=== PATIENT | female | born 1985 | race Caucasian/White ===

== ENCOUNTER 2019-06-23 07:13 | Emergency (ER) | payer OTHER, SELFPAY ==
--- NOTE | ~2019-06-23 | CT_ITS ---
EXAMINATION: CT abdomen pelvis w con INDICATION: Abdominal pain TECHNIQUE: Computed tomographic images of the abdomen and pelvis were obtained after the administrati on of 100 cc of Omnipaque 350 intravenous contrast. The dose-length product (DLP) was 636.40 mGy-cm. Automated exposure control and iterative reconstruction technique were employed. COMPARISON: 01/21/2019 FINDINGS: Minimal dependent atelectasis is present in the lung bases. The heart size is normal. There is focal fatty infiltration of the liver adjacent to the ligamentum teres. The liver is otherwise no rmal. The spleen, pancreas, gallbladder, and right adrenal gland are normal. There is a 7 mm low-dens ity mass of the left adrenal gland, consistent with an adenoma. Hypoattenuating lesions in the kidney s, measuring up to 7 mm on the left, are too small to characterize but likely represent cysts. A retr oaortic left renal vein is noted. No pathologically enlarged abdominal or pelvic lymph nodes are iden tified. The appendix is normal. There is no free intraperitoneal gas or evidence of bowel obstruction . IMPRESSION: 1. No CT correlate for the patient's symptoms. Reviewed, dictated and finalized at location A.
[2019-06-23 07:17] VITALS: BP 147/118; PULSE 79; RESP 14; TEMP 36.8; O2SAT 100
--- NOTE | 2019-06-23 07:32 | ED.ABDPAIN ---
HPI - Abdominal Pain General Chief Complaint: Urogenital-Female Stated Complaint: abd pain Source: RN notes reviewed History of Present Illness HPI narrative: Patient presents emergency department from home via EMS for abdominal pain. Patient states symptoms been ongoing for the past 5 days. Patient states pain in the bilateral lower abdomen radiating to the bilateral back. Described as sharp and stabbing. Patient states associated nausea and vomiting. Patient states she was given Zofran 4 mg by EMS. Patient states that she has a history of kidney stones and feels like her previous kidney stones. She denies any fevers or chills chest pain diarrhea or any other symptoms. Related Data Home Medications Medication Instructions Recorded Confirmed alprazolam [Xanax] 2 mg PO QID PRN 01/21/19 01/21/19 lamotrigine [Lamictal] 150 mg PO DAILY 01/21/19 01/21/19 Allergies Allergy/AdvReac Type Severity Reaction Status Date / Time No Known Allergies Allergy Unverified 10/27/14 18:16 Review of Systems Review of Systems: Narrative: Gen.: Denies fevers or chills ENT: Denies congestion Respiratory: Denies shortness of breath or cough CV: Denies chest pain or palpitations GI: See HPI denies burning, urgency, frequency or hematuria Musculoskeletal: Denies back pain or muscle pain Neuro: Denies numbness, tingling, weakness or focal weakness Skin: Denies rash Except as documented, all other systems reviewed and negative [facility] Past Medical History Medical History Anxiety Kidney stones Tobacco dependence Social History Social History Smoking packs per day: 2 Smoking cigarettes per day: 40.0 Years smoked: 10 Smoking pack-years: 20.00 Smoking status: Current every day smoker Tobacco type: cigarettes Second hand tobacco smoke exposure: No Alcohol intake: never Substance use: never Gender identity (if verbalized by the patient): Female Spiritual care concerns: No Agree to blood products: Yes Exam Narrative: Exam Narrative: APPEARANCE: No acute distress, nontoxic, resting in bed HEENT: Normocephalic, atraumatic, OMM RESPIRATORY: No respiratory distress, clear to auscultation bilaterally with no rhonchi wheezing or rales CARDIOVASCULAR: RRR s murmur ABDOMINAL: Soft, nondistended, diffusely tender to palpation, no rebound or guarding, bilateral flank tenderness MUSCULOSKELETAl: Moves all extremities. No clubbing, cyanosis or edema. NEURO: Awake and alert. Following commands, speech normal, no focal deficits SKIN:: Warm, dry. Normal Color PSYCHIATRIC: Normal affect/mood Course Course Emergency Course: Reviewed old records Patient states that they are feeling much better at this time. States abdominal pain has improved. Repeat abdominal exam shows the patient's abdomen to be soft with no surgical abdomen present. Discussed with patient results of workup and diagnosis. Discussed need for follow-up with primary care physician, reasons to return to the emergency department in proper use of medication. Patient understands and agrees to current treatment plan Vital Signs Vital signs: Vital Signs Temperature 98.2 F 06/23/19 07:17 Pulse Rate 79 06/23/19 07:17 Respiratory Rate 14 06/23/19 07:17 Blood Pressure 147/118 H 06/23/19 07:17 Pulse Oximetry 100 06/23/19 07:17 Temperature 98.2 F 06/23/19 07:17 Pulse Rate 79 06/23/19 07:17 Respiratory Rate 14 06/23/19 07:17 Blood Pressure 147/118 H 06/23/19 07:17 Pulse Oximetry 100 06/23/19 07:17 MDM - Abdominal Pain MDM Narrative Medical decision making narrative: Patient's abdomen is soft without significant pain or signs of surgical abdomen on serial exams. Lab and x-ray evaluations are reviewed and patient is felt to be a reasonable candidate for outpatient management. Patient was instructed as to limitations of x-ray
[2019-06-23] MEDS: MORPHINE SULFATE 4 MG/ML INJ IV PUSH (07:44)
[2019-06-23] MEDS: SODIUM CHLORIDE 0.9% IV 1,000 ML 999 ML IV CONT ×2 (07:44→10:12)
[2019-06-23 08:02] LABS: Basophils Percent Auto 0.4 % (0.2-1.2); Eosinophils Absolute Auto 0.1 K/mm3 (0-0.3); Eosinophils Percent Auto 0.9 % (0-4.4); Hematocrit 40.1 % (37.0-47.0); Hemoglobin 13.3 g/dL (12.0-15.0); Immature Granulocyte Absolute 0.03 K/mm3 (0.00-0.031); Immature Granulocyte Percent A 0.3 % (0-0.5); Lymphocytes Absolute Auto 3.11 K/mm3 (0.9-3.2); Mean Corpuscular HGB Conc 33.2 g/dl (32-36); Mean Corpuscular Hemoglobin 27.7 pg (26-34); Mean Corpuscular Volume 83.5 fl (80-100); Mean Platelet Volume 10.5 fl (7.4-10.4); Monocytes Absolute Auto 0.9 K/mm3 (0.1-0.6); Monocytes Percent Auto 8.8 % (2.6-8.5); Neutrophils Absolute Auto 5.6 K/mm3 (1.3-6.7); Neutrophils Percent Auto 57.6 % (45.5-73.1); Platelet Count Result 282 k/mm3 (150-375); Red Cell Distribution Width 13.3 % (11.5-14.5); White Blood Count 9.7 K/mm3 (4.5-10.0)
[2019-06-23 08:14] LABS: Alanine Aminotransferase 14 U/L (4-35); Alkaline Phosphatase 56 U/L (38-126); Aspartate Amino Transferase 22 U/L (14-36); Bilirubin,Total 0.6 mg/dL (0.2-1.3); Blood Urea Nitrogen 13 mg/dL (7-17); Calcium 9.1 mg/dL (8.4-10.2); Carbon Dioxide 23 mmol/L (22-30); Chloride 108 mmol/L (98-107); Estimated CRCL calculation 72 ml/min; Estimated Glomerular Filt Rate > 60; Glucose 92 mg/dL (65-105); Lipase 143 U/L (23-300); Potassium 3.1 mmol/L (3.4-5.0); Sodium 139 mmol/L (137-145)
[2019-06-23 09:06] LABS: Add Urine Microscopic? YES; Appearance Urine Clear (Clear); Bacteria Urine Trace /hpf; Bilirubin Urine Negative (Negative); Blood Urine 3+ (Negative); Color Urine Yellow (Yellow); Glucose Urine UA Negative (Negative); Ketones Urine Negative (Negative); Leukocyte Esterase Ur 1+ LEU/UL (Negative); Mucus Urine Rare /lpf; Nitrate Urine Negative (Negative); Protein Urine 2+ mg/dL (Negative); RBC Urine 0-2 /hpf (0-2); Specific Grav Ur 1.016 (1.001-1.035); Squamous Epithelial Cell Urine Many /hpf (Few)
[2019-06-23] MEDS: HYDROMORPHONE HCL 1 MG/ML INJ 0.5 MG IV PUSH (09:52)
[2019-06-23] MEDS: POTASSIUM CHLORIDE 20 MEQ TABLET 40 MEQ PO (09:52)
[2019-06-23 10:11] VITALS: BP 108/68; PULSE 54; RESP 16; O2SAT 100
[2019-06-23] MEDS: NITROFURANTOIN MONOHYD MACROCR 100 MG CAP PO (10:12)
[2019-06-23 11:03] VITALS: BP 114/60; PULSE 62; RESP 12; O2SAT 99
== END 2019-06-23 11:04 | disposition home or self-care (01) ==
PROVIDERS: Emergency Provider Emergency Medicine; PCP Family Medicine
DX: N39.0 Urinary tract infection, site not specified (principal); R10.32 Left lower quadrant pain; R10.31 Right lower quadrant pain; F41.9 Anxiety disorder, unspecified; F17.210 Nicotine dependence, cigarettes, uncomplicated; Z87.442 Personal history of urinary calculi
CPT/HCPCS: 36415; 74177; 80053; 81001; 81025; 83690; 85025; 96361; 96374; 96375; 99284; A9270; J1170; J2270; J7030; Q9967

== ENCOUNTER 2019-06-25 15:49 | Outpatient (CLI) | payer OTHER, SELFPAY ==
--- NOTE | ~2019-06-25 | US_ITS ---
EXAMINATION: US pelvic complete w TV EXAM DATE: 06/25/2019 16:24 INDICATION: Dysmenorrhea. TECHNIQUE: Pelvic transabdominal and transvaginal sonogram was performed. There are multiple graysca le and Doppler images available for interpretation. Correlation is made to CT abdomen pelvis 0. FINDINGS: Uterus measures 7.3 x 3.2 x 3.8 cm, and is morphologically normal. Endometrial stripe alicia sures 7 mm, within normal limits. There is no free pelvic fluid. Right adnexa: The ovary measures 2.5 x 1.7 x 1.5 cm and is morphologically normal. Ovarian vascular f low confirmed. Left adnexa: The ovary measures 1.6 x 1.6 x 1.2 cm and is morphologically normal. Ovarian vascular fl ow confirmed. IMPRESSION: 1. Unremarkable pelvic ultrasound exam. Reviewed, dictated and finalized at location A.
== END 2019-06-25 15:50 | disposition home or self-care (01) ==
PROVIDERS: Visit Provider Family Medicine
DX: N94.6 Dysmenorrhea, unspecified (principal)
CPT/HCPCS: 76830; 76856

== ENCOUNTER 2019-09-02 17:08 | Outpatient (CLI) | payer OTHER, SELFPAY ==
--- NOTE | ~2019-09-02 | US_ITS ---
US soft tissue upper back 09/02/2019 17:43 Indication: Left shoulder mass. Localized swelling. Procedure: High-resolution ultrasound of the left shoulder/neck in the area of palpable concern Comparison: No prior studies for comparison. Findings: There is an oval-shaped striated hypoechoic structure with circumscribed margins in the are a of palpable concern. This has a appearance consistent with muscle, although does not elongate in a typical fashion the muscle. This could represent a torn muscle. This could also represent an atypical lipoma, although slightly less echoic than typical for lipoma. Impression: 1: Oval circumscribed hypoechoic striated mass measuring 2.9 x 2.5 x 1.1 cm, possibly torn muscle or atypical lipoma. Consider correlation with contrast-enhanced CT. Reviewed, dictated and finalized at location A. Impression: 1: Oval circumscribed hypoechoic striated mass measuring 2.9 x 2.5 x 1.1 cm, po ssibly torn muscle or atypical lipoma. Consider correlation with contrast-enhan attila CT.
== END 2019-09-02 17:09 | disposition home or self-care (01) ==
PROVIDERS: Visit Provider Family Medicine
DX: M79.89 Other specified soft tissue disorders (principal)
CPT/HCPCS: 76604

== ENCOUNTER 2020-01-03 16:55 | Emergency (ER) | payer OTHER, SELFPAY ==
[2020-01-03] VITALS (9 sets, daily range): BP systolic 107–138; BP diastolic 73–100; PULSE 71–80; RESP 16–18; TEMP 36.4–36.5; O2SAT 97–100
--- NOTE | ~2020-01-03 | CT_ITS ---
EXAMINATION: CT abdomen pelvis w con DATE: 01/03/2020 20:16 INDICATION: Right lower quadrant abdominal pain. TECHNIQUE: Computed tomography (CT) of the abdomen and pelvis was performed with 100 mL Omnipaque 350 intravenous contrast. Automated exposure control and iterative reconstruction technique were employe d. The dose-length product was 584.89 mGy-cm. COMPARISON: CT abdomen and pelvis 06/23/19 FINDINGS: The visualized portions of the lung bases demonstrate mild atelectasis. No pleural effusion . The heart size is normal. No pericardial effusion. The liver, gallbladder, spleen, pancreas, adrena l glands, and right kidney are normal. There is a 10 mm mass in left kidney. There is a 6 mm cyst in left kidney. There are no dilated loops of bowel. The appendix is normal. There are no pathologically enlarged lymph nodes. There is no free intraperitoneal fluid. There is mild thoracolumbar spondylosi s. IMPRESSION: 1. No etiology for the patient's symptoms. 2. 10 mm left kidney mass, which may be a hemorrhagic cyst or less likely a solid neoplasm. Abdomen M RI without and with contrast is recommended. Reviewed, dictated and finalized at location A. [employer] IMPRESSION: 1. No etiology for the patient's symptoms. 2. 10 mm left kidney mass, which may be a hemorrhagic cyst or less likely a hiro id neoplasm. Abdomen MRI without and with contrast is recommended.
[2020-01-03 18:20] LABS: Basophils Absolute Auto 0.1 K/mm3 (0.0-0.1); Basophils Percent Auto 0.3 % (0.2-1.2); Eosinophils Absolute Auto 0.1 K/mm3 (0-0.3); Eosinophils Percent Auto 0.9 % (0-4.4); Hematocrit 43.3 % (37.0-47.0); Hemoglobin 14.6 g/dL (12.0-15.0); Immature Granulocyte Absolute 0.06 K/mm3 (0.00-0.031); Immature Granulocyte Percent A 0.4 % (0-0.5); Lymphocytes Percent Auto 21.5 % (18.3-44.2); Mean Corpuscular HGB Conc 33.7 g/dl (32-36); Mean Corpuscular Hemoglobin 29.9 pg (26-34); Mean Corpuscular Volume 88.5 fl (80-100); Mean Platelet Volume 10.6 fl (7.4-10.4); Monocytes Absolute Auto 0.7 K/mm3 (0.1-0.6); Monocytes Percent Auto 4.8 % (2.6-8.5); Neutrophils Absolute Auto 11.1 K/mm3 (1.3-6.7); Neutrophils Percent Auto 72.1 % (45.5-73.1); Platelet Count Result 312 k/mm3 (150-375); Red Blood Count 4.89 M/mm3 (4.2-5.4); White Blood Count 15.3 K/mm3 (4.5-10.0)
[2020-01-03 18:33] LABS: Alanine Aminotransferase 11 U/L (4-35); Albumin Level 4.4 g/dL (3.5-5.1); Alkaline Phosphatase 62 U/L (38-126); Anion Gap 8 mmol/L (8-16); Aspartate Amino Transferase 21 U/L (14-36); Bilirubin,Total 0.5 mg/dL (0.2-1.3); Blood Urea Nitrogen 11 mg/dL (7-17); Calcium 9.4 mg/dL (8.4-10.2); Carbon Dioxide 24 mmol/L (22-30); Chloride 108 mmol/L (98-107); Estimated CRCL calculation 89 ml/min; Estimated Glomerular Filt Rate > 60; Glucose 93 mg/dL (65-105); Lipase 278 U/L (23-300); Sodium 140 mmol/L (137-145)
[2020-01-03 19:01] LABS: Add Urine Microscopic? YES; Appearance Urine Clear (Clear); Bacteria Urine Trace /hpf; Bilirubin Urine Negative (Negative); Blood Urine 2+ (Negative); Color Urine Yellow (Yellow); Glucose Urine UA Negative (Negative); Ketones Urine Negative (Negative); Leukocyte Esterase Ur Negative LEU/UL (Negative); Mucus Urine Heavy /lpf; Nitrate Urine Negative (Negative); Protein Urine 2+ mg/dL (Negative); Squamous Epithelial Cell Urine Few /hpf (Few); Urobilinogen Urine Negative mg/dL (<2.0); WBC Urine 0-3 /hpf
--- NOTE | 2020-01-03 19:09 | PC.NURSE ---
report to axel Villeda at this time, he has assumed pt care.
[2020-01-03] MEDS: ONDANSETRON INJ 4 MG/2 ML VIAL IV PUSH (19:20)
[2020-01-03] MEDS: SODIUM CHLORIDE 0.9% IV 1,000 ML 999 ML IV CONT ×2 (19:21→21:26)
[2020-01-03] MEDS: FAMOTIDINE 20 MG/2 ML VIAL IV PUSH (19:21)
--- NOTE | 2020-01-03 19:24 | ED.ABDPAIN ---
HPI - Abdominal Pain General Chief Complaint: Abdominal Pain Stated Complaint: right lower quadrant pain Time Seen by Provider: 01/03/20 18:55 Source: patient Mode of arrival: ambulatory Limitations: no limitations History of Present Illness HPI narrative: Patient is a 34-year-old female who presents with sharp stabbing right lower quadrant abdominal pain for the last 2-1/2 days has been taking medications at home with no improvement denies similar occurrence in the past no she has had a few loose stools that are minimal in nature has also had some associated nausea on arrival appears uncomfortable but in no distress denies urinary vaginal issues or individuals with similar occurrence at home or URI symptoms Related Data Home Medications Medication Instructions Recorded Confirmed alprazolam [Xanax] 2 mg PO QID PRN 01/21/19 01/21/19 gabapentin 300 mg PO DAILY 01/03/20 Allergies Allergy/AdvReac Type Severity Reaction Status Date / Time No Known Allergies Allergy Verified 01/03/20 18:03 Review of Systems Review of Systems: All systems reviewed & are unremarkable except as noted in HPI and below PMFSH Past Medical History Medical History (Updated 01/03/20 @ 21:01 by Benoit Luna PA-C) Anxiety Kidney stones Tobacco dependence Surgical History Surgical History H/O lithotripsy History of renal stent Social History Social History Smoking packs per day: 2 Smoking cigarettes per day: 40.0 Years smoked: 10 Smoking pack-years: 20.00 Smoking status: Current every day smoker Tobacco type: cigarettes Second hand tobacco smoke exposure: No Alcohol intake: never Substance use: never Gender identity (if verbalized by the patient): Female Spiritual care concerns: No Agree to blood products: Yes Exam Narrative: Exam Narrative: GENERAL: Well-appearing, well-nourished, and in no acute distress. HEAD: Normocephalic, atraumatic. EYES: PERRLA and EOMI. ENT: Nares clear, no rhinorrhea or epistaxis. Mucous membranes moist. CHEST: Clear to auscultation. No respiratory distress. No wheezes rales or rhonchi HEART: Regular rate and rhythm. No murmur heard. Normal peripheral pulses. ABDOMEN: Soft, focal right lower quadrant abdominal pain with voluntary guarding, nondistended EXTREMITIES: Normal range of motion. No edema. SKIN: Warm, dry, no rash. NEURO: No focal deficits. Alert and oriented x3. PSYCH: Normal mood and affect. Course Course Emergency Course: Patient in the room has been hydrated is feeling better patient know she was supposed to be tested for Covid today but came here instead will be tested prior to discharge patient notes that she should self quarantine and follow with primary care for further evaluation of her symptoms and the left kidney mass that was seen today patient will also be given urology follow-up. Unsure as to the etiology of patient's symptoms today Vital Signs Vital signs: Vital Signs Temperature 97.7 F 01/03/20 17:58 Pulse Rate 78 01/03/20 17:58 Respiratory Rate 18 01/03/20 17:58 Blood Pressure 138/100 H 01/03/20 17:58 Pulse Oximetry 99 01/03/20 17:58 Temperature 97.7 F 01/03/20 19:51 Pulse Rate 71 01/03/20 20:45 Respiratory Rate 16 01/03/20 20:45 Blood Pressure 111/73 01/03/20 20:45 Pulse Oximetry 99 01/03/20 20:45 MDM - Abdominal Pain MDM Narrative Medical decision making narrative: Patient in the room aware of case findings treatment plan diagnosis afebrile nontoxic-appearing no distress will be discharged home with follow-up with primary care advised to self quarantine and to do so she receives her results will follow with primary care to discuss referrals and further evaluation of her kidney mass seen today and is felt appropriate for outpatient reevaluation Lab Data Result diagrams: 01/03/20 18:09
[2020-01-04 13:35] LABS: SARS-CoV-2 RNA PCR Negative
== END 2020-01-03 22:40 | disposition home or self-care (01) ==
PROVIDERS: Emergency Medicine Emergency Medical Services; Emergency Provider Emergency Medicine; PCP Family Medicine
DX: N28.89 Other specified disorders of kidney and ureter (principal); F41.9 Anxiety disorder, unspecified; Z87.442 Personal history of urinary calculi; F17.210 Nicotine dependence, cigarettes, uncomplicated; Z20.828 Contact with and (suspected) exposure to other viral communicable diseases
CPT/HCPCS: 36415; 74177; 80053; 81001; 81025; 83690; 85025; 87635; 96361; 96374; 96375; 99284; C9803; J0131; J2405; J7030; Q9967; U0003

== ENCOUNTER 2022-02-15 19:35 | Emergency (ER) | payer OTHER, SELFPAY ==
--- NOTE | ~2022-02-15 | XR_ITS ---
XR chest 2V DATE: 02/15/2022 20:03 INDICATION: Cough, wheezing. Smoker. TECHNIQUE: PA and lateral views COMPARISON: None FINDINGS: Normal heart size. No hilar or mediastinal enlargement. No pulmonary infiltrate or consolid ation, pleural effusion or pulmonary vascular congestion or pneumothorax. IMPRESSION: No active cardiopulmonary disease Reviewed, dictated and finalized at location A. [employer]
[2022-02-15 20:40] VITALS: BP 131/85; PULSE 63; RESP 14; TEMP 36.4; O2SAT 100
--- NOTE | 2022-02-15 20:55 | ED.URI ---
HPI - URI/Sore Throat General Chief Complaint: Upper Respiratory Infection Stated Complaint: Acute Bronchitis, SOB Time Seen by Provider: 02/15/22 19:54 History of Present Illness HPI Narrative: 36-year-old female history of bipolar and anxiety who is a 1 pack/days smoker presents to the emergency room with 12 days of sinus congestion postnasal drip coughing and shortness of breath. Patient states she was seen in urgent care last week and was diagnosed bronchitis, was given a Z-Noel and inhaler. Patient states she is not experiencing any resolution of her symptoms they are only getting worse. Patient is not taking any cough medicine. Related Data Home Medications Medication Instructions Recorded Confirmed alprazolam 2 mg tablet (Xanax) 2 mg PO QID PRN Anxiety 01/21/19 01/21/19 gabapentin 300 mg tablet 300 mg PO DAILY 01/03/20 Allergies Allergy/AdvReac Type Severity Reaction Status Date / Time No Known Allergies Allergy Verified 01/03/20 18:03 Review of Systems Review of Systems: CONSTITUTIONAL: Denies fever, chills, or sweats. EYES: Denies visual changes, redness, or discharge. ENT: Reports sinus congestion, PND CARDIOVASCULAR: Denies chest pain, palpitations, or edema. RESPIRATORY: Reports cough and dyspnea GASTROINTESTINAL: Denies abdominal pain, nausea, vomiting, or diarrhea. GENITOURINARY: Denies dysuria or hematuria. SKIN: Denies rash or itching. MUSCULOSKELETAL: Denies back pain, joint pain, or myalgia. NEUROLOGIC: Denies headache, numbness, dizziness, or weakness. PSYCHIATRIC: Denies anxiety or depression. [facility] Past Medical History Medical History Anxiety Kidney stones Tobacco dependence Surgical History Surgical History H/O lithotripsy History of renal stent Social History Social History Smoking packs per day: 2 Smoking cigarettes per day: 40.0 Years smoked: 10 Smoking pack-years: 20.00 Smoking status: Current every day smoker Tobacco type: cigarettes Second hand tobacco smoke exposure: No Alcohol intake: never Substance use: never Gender identity (if verbalized by the patient): Female Spiritual care concerns: No Agree to blood products: Yes Exam Narrative: GENERAL: Well-appearing, well-nourished, no physical limitations, and in no acute distress. HEAD: Normocephalic, atraumatic. EYES: Conjunctivae normal, PERRLA and EOMI. ENT: External nose normal, Nares clear, no rhinorrhea or epistaxis. Mucous membranes moist. Oropharynx without tonsillar hypertrophy exudate or other lesions. External ears normal, bilateral TMs normal bilaterally CHEST: External wheezes at bases HEART: Regular rate and rhythm. No murmur heard. Normal peripheral pulses. ABDOMEN: Soft, nontender, nondistended, normal active bowel sounds. EXTREMITIES: Normal range of motion. No edema. No clubbing or cyanosis SKIN: Warm, dry, no rash. No noted wounds NEURO: No focal deficits. Alert and oriented x3. MAEW. CN's II-XI intact bilaterally, normal gait PSYCH: Anxious and histrionic. Course Course Emergency Course: 2100: Went to evaluate the patient and she was found to be outside smoking a cigarette. Vital Signs Vital signs: Vital Signs Temperature 36.4 C 02/15/22 20:40 Pulse Rate 63 02/15/22 20:40 Respiratory Rate 14 02/15/22 20:40 Blood Pressure 131/85 02/15/22 20:40 Pulse Oximetry 100 02/15/22 20:40 Oxygen Delivery Room Air 02/15/22 20:40 Temperature 36.4 C 02/15/22 20:40 Pulse Rate 63 02/15/22 20:40 Respiratory Rate 14 02/15/22 20:40 Blood Pressure 131/85 02/15/22 20:40 Pulse Oximetry 100 02/15/22 20:40 Oxygen Delivery Room Air 02/15/22 20:40 MDM - URI/Sore Throat Lab Data Labs: Lab Results 02/15/22 Range/Units 20:28 Influenza A (RT-PCR) Pending Influenza B (RT-
[2022-02-15 21:00] VITALS: PULSE 76; RESP 16; O2SAT 97
[2022-02-15 21:15] LABS: Influenza A QL RT-PCR Negative (Negative); Influenza B QL RT-PCR Negative (Negative); RSV RNA, RT-PCR Negative (Negative); SARS-CoV-2 RNA PCR Negative
[2022-02-15] MEDS: ALBUTEROL SULFATE NEB 2.5 MG/3 ML INH INHALATION (21:25)
[2022-02-15] MEDS: IPRATROPIUM BR 0.02% INH SOLN 0.5 MG/2.5 ML VIAL INHALATION (21:25)
[2022-02-15 21:28] VITALS: PULSE 72; RESP 22
[2022-02-15 21:44] VITALS: PULSE 77; RESP 18
[2022-02-15 22:01] VITALS: BP 126/80; PULSE 67; RESP 16; TEMP 36.8; O2SAT 98
== END 2022-02-15 22:42 | disposition home or self-care (01) ==
PROVIDERS: Emergency Provider Nurse Practitioner Family
DX: J06.9 Acute upper respiratory infection, unspecified (principal); Z20.822 Contact with and (suspected) exposure to COVID-19; F31.9 Bipolar disorder, unspecified; F41.9 Anxiety disorder, unspecified; F17.210 Nicotine dependence, cigarettes, uncomplicated; Z87.442 Personal history of urinary calculi
CPT/HCPCS: 71046; 87637; 94640; 96372; 99283; J1100

== ENCOUNTER 2024-04-25 20:15 | Emergency (ER) | payer OTHER, SELFPAY ==
[2024-04-25 20:28] VITALS: BP 107/72; PULSE 104; RESP 16; TEMP 38.5; O2SAT 96
[2024-04-25 20:38] VITALS: PULSE 113
--- NOTE | 2024-04-25 20:58 | ED.SEIZURE ---
HPI - Seizure General Chief Complaint: Seizure Stated Complaint: 11 MINUTE SZ, W/O POST ICTAL S/S Time Seen by Provider: 04/25/24 20:25 History of Present Illness HPI Narrative: 38-year-old female with a past medical history including epilepsy on Keppra 1000 mg b.i.d., anxiety disorder on multiple psychiatric medications, substance abuse history on Suboxone. Patient presents to the emergency department with a chief complaint of witnessed seizure activity. Patient is not been feeling well for last few days with sore throat, cough and upper respiratory tract infection symptoms. Patient had a witnessed generalized seizure that lasted several minutes before having a postictal period and return to spontaneous mentation. She route to the emergency department via EMS, is presently awake and answering questions appropriately. She states she has not been feeling well with a sore throat. Endorses a fever. No headache, nausea, vomiting. No abdominal pain, back pain, chest pain or shortness of breath. She has seen her regular doctor who has prescribed her Keppra and been titrating her down on her benzodiazepine therapy that she has had over last 6 months. She states she previously was taking 8 mg of alprazolam 6 months ago and has been down titrated to 1 mg once daily with no recent alterations to her regimen. No falls or head injury, trauma. is present at bedside for collateral formation he witnessed a seizure at home. Last seizure was 3 months prior. Related Data Home Medications ?Medication ?Instructions ?Recorded ?Confirmed ?Last Taken ?Type alprazolam 2 mg tablet (Xanax) 2 mg PO QID PRN Anxiety 01/21/19 01/21/19 01/21/19 History gabapentin 300 mg tablet 300 mg PO DAILY 01/03/20 Unknown History Allergies Allergy/AdvReac Type Severity Reaction Status Date / Time No Known Allergies Allergy Verified 01/03/20 18:03 Review of Systems Review of Systems: As reviewed above in HPI [facility] Past Medical History Medical History (Updated 04/26/24 @ 02:22 by Anthony Eddy MD) Tobacco dependence Anxiety Kidney stones Surgical History Surgical History History of renal stent H/O lithotripsy Social History Social History Smoking packs per day: 2 Smoking cigarettes per day: 40.0 Years smoked: 10 Smoking pack-years: 20.00 Smoking status: Current every day smoker Tobacco type: cigarettes Second hand tobacco smoke exposure: No Alcohol intake: never Substance use: never Living arrangements: with family Gender identity (if verbalized by the patient): Female Spiritual care concerns: No Agree to blood products: Yes Exam Narrative: GENERAL: Postictal but answering questions appropriately, not any acute distress, no obvious injury. HEAD: [Normocephalic, atraumatic.] EYES: [PERRLA and EOMI.] ENT: Nares clear, no rhinorrhea or epistaxis. Posterior or pharyngeal erythema, no exudates on the tonsils, dry mucous membranes. NECK: Supple. CHEST: [Clear to auscultation. No respiratory distress.] HEART: Tachycardic rate, regular rate. No murmur heard. [Normal peripheral pulses.] ABDOMEN: [Soft, nondistended], [nontender], [No rigidity or guarding] EXTREMITIES: Normal range of motion. [No edema.] SKIN: Warm, dry, no rash. NEURO: [No focal deficits]. Alert and oriented [x3.] Postictal PSYCH: [Normal mood and affect.] Course Vital Signs Vital signs: Vital Signs Temperature 38.5 C H 04/25/24 20:28 Pulse Rate 104 H 04/25/24 20:28 Respiratory Rate 16 04/25/24 20:28 Blood Pressure 107/72 04/25/24 20:28 Pulse Oximetry 96 04/25/24 20:28 Oxygen Delivery Room Air 04/25/24 20:28 Temperature 38.5 C H 04/25/24 20:28 Pulse Rate 66 04/26/24 02:11 Respiratory Rate 17 04/26/24 02:11 Blood Pressure 121/72 04/26/24 02:11 Pulse Oximetry 96 04/26/24 02:11 Oxygen Delivery Room Air 04/25/24 20:38 MDM - Seizure MDM Narrative Medical decision making narrative: 38-year-old female with a past medical history including epilepsy currently on Keppra 1000 mg b.i.d., chronic anxiety and psychiatric illness on doxazosin, alprazolam, venlafaxine. She has a history of substance abuse currently taking Suboxone therapy and being down titrated on her benzodiazepine therapy and currently taking 1 mg daily. Endorses upper respiratory infection symptoms for last few days and had a witnessed seizure today. No headache, vision changes, fall. She is postictal but answering questions appropriately. She did have a witnessed seizure by family according to the at bedside. She is febrile here at temperature 38.5?, slightly tachycardic with a pulse of 104. Normal blood pressure no tachypnea normal oxygen saturation. Suspicion presently is for breakthrough seizure and likely trigger from recent illness, possible upper respiratory infection with COVID or influenza, strep throat is also likely even her examination findings. Low suspicion for other infectious pathology although pneumonia is possible. Low suspicion intracranial pathology such as meningitis or trauma, brain bleed or mass given her normal neurological assessment at this time. Will evaluate with broad laboratory evaluations, head CT, toxicological screenings, CBC, CMP, chest x-ray, COVID, flu, RSV, strep swabs. She was given a dose of 1 g Tylenol p.o. given that she is currently able to tolerate oral intake, fluid hydration provided, given IV Keppra as she did not take her evening dose. Patient's workup here shows a minor leukocytosis 11.6, normal hemoglobin, normal platelet level. Negative lactic acidosis so suspicion for true seizure activity is lower at this time as it was drawn directly after the supposed event. Coagulation panel within normal limits. VBG shows respiratory alkalosis secondary to tachypnea. Repeat VBG after fluids and treatment here in the emergency department has normalized. Normal pH. Normal bicarb. Normal pCO2. Electrolytes within normal limits, normal creatinine, normal glucose, negative lactic acid, normal LFTs. Negative troponin. TSH normal. Normal urinalysis without signs of infection. Tox panel was negative aside from benzos and cannabis. E alcohol, salicylates and Tylenol negative. Viral panel and strep test negative. Chest x-ray shows opacities consistent with pneumonia in the right perihilar and left lower lobe. Head CT without acute findings. EKG reads sinus rhythm with short ME interval, no signs of ST segment elevations, depressions or inversions or ectopy. Overall sinus rhythm. Patient was observed here for numerous hours without any recurrence of any seizure or seizure-like activity. She had stable vital signs throughout, improved with fluids and antibiotics for her pneumonia. Discussed next steps with the patient and she would like to be discharged home. I felt like this was appropriate given her resolution of symptoms, diagnostic findings and available outpatient follow-up and current medications that she takes. We discussed admission as well the patient want to go home. Center prescriptions for her pneumonia and given strict return precautions prior to safe discharge home. Medical Records Attestation: I reviewed the patient's medical records. Lab Data Attestation: I reviewed the patient's lab results. 04/25/24 21:14 04/25/24 21:14 Labs: Lab Results 04/25/24 04/25/24 04/25/24 Range/Units 21:14 22:28 23:37 WBC 11.6 H (4.5-10.0) K/mm3 RBC 4.37 (4.2-5.4) M/mm3 Hgb 12.5 (12.0-15.0) g/dL Hct 37.9 (37.0-47.0) % MCV 86.7 (80-100) fl MCH 28.6 (26-34) pg MCHC 33.0 (32-36) g/dl RDW 13.2 (11.5-14.5) % Plt Count 246 (150-375) k/mm3 MPV 10.4 (7.4-10.4) fl Immature Gran % (Auto) 0.6 H (0-0.5) % Neut % (Auto) 80.0 H (45.5-73.1) % Lymph % (Auto) 9.9 L (18.3-44.2) % [place] % (Auto) 6.6 (2.6-8.5) % Eos % (Auto) 2.6 (0-4.4) % Baso % (Auto) 0.3 (0.2-1.2) % Lymph # (Auto) 1.15 (0.9-3.2) K/mm3 [place] # (Auto) 0.8 H (0.1-0.6) K/mm3 Eos # (Auto) 0.3 (0-0.3) K/mm3 Baso # (Auto) 0.0 (0.0-0.1) K/mm3 Abs Immat Gran (auto) 0.07 H (0.00-0.031) K/mm3 Absolute Neuts (auto) 9.3 H (1.3-6.7) K/mm3 Absolute Nucleated RBC 0.000 (0.0-0.012) K/mm3 Nucleated RBC % 0.0 (0.0-0.2) % PT 14.6 (11.1-14.7) Seconds INR 1.1 APTT 30.5 (22.3-36.8) Seconds Sodium 138 (137-145) mmol/L Potassium 4.2 (3.4-5.0) mmol/L Chloride 106 (98-107) mmol/L Carbon Dioxide 24 (22-30) mmol/L Anion Gap 8 (4-12) mmol/L BUN 8 (7-17) mg/dL Creatinine 0.73 (0.7-1.0) mg/dL Estim Creat Clear Calc 103 ml/min Estimated GFR > 60 (59 - ) Glucose 92 (65-110) mg/dL Lactic Acid < 0.5 L (0.7-2.0) mmol/L Calcium 8.7 (8.4-10.2) mg/dL Total Bilirubin 0.7 (0.2-1.3) mg/dL AST 22 (14-36) U/L ALT 12 (6-35) U/L Alkaline Phosphatase 58 (38-126) U/L Total Creatine Kinase 86 (30-135) U/L Troponin I < 0.012 (0.000-0.034) ng/mL Total Protein 6.0 L (6.3-8.2) g/dL Albumin 3.6 (3.5-5.1) g/dL TSH 0.672 (0.465-4.680) uIU/mL Urine Color Yellow (Yellow) Urine Appearance Clear (Clear) Urine pH 7.5 (5.0-9.0) Ur Specific [place] 1.009 (1.001-1.035) Urine Protein Negative (Negative) mg/dL Urine Glucose (UA) Negative (Negative) mg/dL Urine Ketones Negative (Negative) mg/dL Ur Blood (Man) Trace (Negative) Urine Nitrate Negative (Negative) Urine Bilirubin Negative (Negative) Urine Urobilinogen 0.2 (<2.0) mg/dL Leukocyte Esterase Rfl Negative (Negative) MATTEO/UL Urine RBC 6-10 H (0-2) /hpf Urine WBC 0-5 (0-3) /hpf Ur Squamous Epith Cells None seen (Few) /hpf Urine Bacteria None seen /hpf Urine Casts 0-2 Salicylates < 1.0 L (2-20) mg/dL Urine Opiates Screen Negative (Negative) Urine Methadone Screen Negative (Negative) Acetaminophen < 10 L (10-30) ug/mL Ur Barbiturates Screen Negative (Negative) Ur Phencyclidine Scrn Negative (Negative) Ur Amphetamine Screen Negative (Negative) U Benzodiazepines Scrn Positive A (Negative) Urine Cocaine Screen Negative (Negative) U Cannabinoids Screen Positive A (Negative) Ethyl Alcohol < 10 (<10) mg/dL Influenza A (RT-PCR) Negative (Negative) Influenza B (RT-PCR) Negative (Negative) RSV (RT-PCR) Negative (Negative) SARS-CoV-2 RNA (RT-PCR) Negative (Negative) Group A Strep (PCR) Not detected (Negative) ABG Data ABG results: 04/25/24 04/26/24 21:39 00:51 VBG pH 7.599 H* 7.373 VBG pCO2 15.3 L* 35.7 L VBG pO2 166.4 H 68.9 H VBG HCO3 14.6 L 20.3 L O2 Delivery Device Room air Room air O2 Liters/Min Not Reportable Not Reportable FiO2 21 21 Attestation: I personally reviewed and interpreted this ABG as follows: Interpretation: Initial respiratory alkalosis, repeat VBG shows normal pH, resolution of the tachypnea. Imaging Data Attestation: I personally reviewed and interpreted this imaging study as follows: My impression: Impressions Chest X-Ray 04/25/24 22:02 IMPRESSION: Minimal opacification in the left and right perihilar and lower lobe area which may indicate early pneumonia. Edema is also possible. Follow-up advised. Head CT 04/25/24 22:04 Impression FINDINGS: BRAIN PARENCHYMA AND CSF SPACES: No midline shift, mass effect or hemorrhage. The brain parenchyma and CSF spaces are otherwise normal. VISUALIZED PARANASAL SINUSES: Well aerated. MASTOIDS: Well aerated. BONES: The bones appear intact. SOFT TISSUES: Visualized nasopharynx is normal. Superficial soft tissues are normal. IMPRESSION: No acute intracranial findings. Discharge Plan Discharge Clinical Impression: Community acquired pneumonia, Breakthrough seizure Patient Disposition: Home, Self-Care Condition: Stable Instructions: Antibiotic Form, Epilepsy (DC), Community Acquired Pneumonia (DC) Additional Instructions: We will send you home with several antibiotics to control your pneumonia. Take Tylenol and ibuprofen for any fevers or chills. We will send you home with some cough medications as well as 2 different antibiotics. Take all your other medications at the regular times in addition to these new prescriptions. Follow-up with your regular doctor. Return with any new or worsening concerns at any time. Patient Language: Kazakh Prescriptions: New azithromycin [Zithromax Z-Noel] 250 mg tablet See Rx Instructions PO .COMPLEX Qty: 6 0RF Rx Instructions: For 250 mg dose pack: take 500 mg today (day 1), then 250 mg for 4 days (days 2-5) amoxicillin-pot clavulanate 875-125 mg tablet 1 tablet PO Q12H 7 Days Qty: 14 0RF benzonatate 200 mg capsule 200 mg PO TID PRN (Reason: cough) Qty: 20 0RF No Action gabapentin 300 mg Tablet 300 mg PO DAILY famotidine [Pepcid] 20 mg tablet 20 mg PO BID Qty: 14 0RF hyoscyamine sulfate [Levsin] 0.125 mg tablet 0.125 mg PO QID Qty: 14 0RF ondansetron 4 mg tablet,disintegrating 4 mg PO Q6H PRN (Reason: nausea and vomiting) Qty: 10 0RF albuterol sulfate 1.25 mg/3 mL solution for nebulization 1.25 mg inhalation Q4H Qty: 75 0RF prednisone 20 mg tablet 60 mg PO DAILY 5 Days Qty: 15 0RF alprazolam [Xanax] 2 mg Tablet 2 mg PO QID PRN (Reason: Anxiety) Follow-up/Referrals: UNKNOWN,DOCTOR [Primary Care Provider] - Time of Disposition: 02:22
[2024-04-25 21:00] VITALS: BP 126/79; PULSE 100; RESP 16; O2SAT 93
[2024-04-25 21:21] LABS: Basophils Percent Auto 0.3 % (0.2-1.2); Eosinophils Absolute Auto 0.3 K/mm3 (0-0.3); Eosinophils Percent Auto 2.6 % (0-4.4); Hematocrit 37.9 % (37.0-47.0); Hemoglobin 12.5 g/dL (12.0-15.0); Immature Granulocyte Absolute 0.07 K/mm3 (0.00-0.031); Immature Granulocyte Percent A 0.6 % (0-0.5); Lymphocytes Absolute Auto 1.15 K/mm3 (0.9-3.2); Lymphocytes Percent Auto 9.9 % (18.3-44.2); Mean Corpuscular Hemoglobin 28.6 pg (26-34); Mean Corpuscular Volume 86.7 fl (80-100); Mean Platelet Volume 10.4 fl (7.4-10.4); Monocytes Absolute Auto 0.8 K/mm3 (0.1-0.6); Monocytes Percent Auto 6.6 % (2.6-8.5); Neutrophils Absolute Auto 9.3 K/mm3 (1.3-6.7); Platelet Count Result 246 k/mm3 (150-375); Red Blood Count 4.37 M/mm3 (4.2-5.4); Red Cell Distribution Width 13.2 % (11.5-14.5); White Blood Count 11.6 K/mm3 (4.5-10.0)
[2024-04-25 21:32] LABS: INR 1.1; Prothrombin Time 14.6 Seconds (11.1-14.7)
[2024-04-25 21:33] LABS: Partial Thromboplastin Time 30.5 Seconds (22.3-36.8)
[2024-04-25 21:37] LABS: Acetaminophen < 10 ug/mL (10-30); Ethanol < 10 mg/dL (<10); Salicylate < 1.0 mg/dL (2-20)
[2024-04-25 21:41] LABS: Fractional Inspired Oxygen 21 %; HCO3 VBG 14.6 mEq/l (24.0-30.0); PO2 VBG 166.4 mmHg (35.0-45.0)
[2024-04-25 21:43] LABS: Device ROOM AIR; PCO2 VBG 15.3 mmHg (42.0-48.0); pH VBG 7.599 (7.300-7.400)
[2024-04-25 21:44] LABS: Strep Group A RT-PCR NOT DETECTED (Negative)
[2024-04-25 21:56] LABS: Influenza A QL RT-PCR Negative (Negative); Influenza B QL RT-PCR Negative (Negative); RSV RNA, RT-PCR Negative (Negative); SARS-CoV-2 RNA PCR Negative (Negative)
[2024-04-25 22:30] VITALS: BP 123/76; PULSE 83; RESP 18; O2SAT 96
[2024-04-25] MEDS: SODIUM CHLORIDE 0.9% IV 1,000 ML 999 ML IV CONT ×2 (22:30)
[2024-04-25] MEDS: ACETAMINOPHEN 500 MG TABLET 1000 MG PO (22:30)
[2024-04-25] MEDS: levETIRAcetam 1500MG/NACL100ML 1,500 MG/100 ML BAG 400 MG IVPB (22:32)
[2024-04-25 22:45] VITALS: BP 116/67; PULSE 86; RESP 24; O2SAT 94
[2024-04-25 22:58] LABS: Lactic Acid Reflex < 0.5 mmol/L (0.7-2.0)
[2024-04-25 23:27] VITALS: BP 116/67; PULSE 87; RESP 17; O2SAT 97
--- NOTE | 2024-04-25 23:29 | PC.NURSE ---
Assumed care of patient after receiving report from MATTHEW Bronson @ 0100. Keppra stopped, EKG completed, urine collected, and antibiotics started at this time.
[2024-04-25 23:30] LABS: Alanine Aminotransferase 12 U/L (6-35); Albumin Level 3.6 g/dL (3.5-5.1); Alkaline Phosphatase 58 U/L (38-126); Anion Gap 8 mmol/L (4-12); Aspartate Amino Transferase 22 U/L (14-36); Bilirubin,Total 0.7 mg/dL (0.2-1.3); Blood Urea Nitrogen 8 mg/dL (7-17); Calcium 8.7 mg/dL (8.4-10.2); Carbon Dioxide 24 mmol/L (22-30); Chloride 106 mmol/L (98-107); Estimated CRCL calculation 103 ml/min; Estimated Glomerular Filt Rate > 60; Glucose 92 mg/dL (65-110); Potassium 4.2 mmol/L (3.4-5.0); Sodium 138 mmol/L (137-145)
[2024-04-25 23:39] LABS: Creatine Kinase 86 U/L (30-135)
[2024-04-25 23:40] LABS: Troponin I < 0.012 ng/mL (0.000-0.034)
[2024-04-25 23:49] LABS: Add Urine Microscopic? YES; Appearance Urine Clear (Clear); Bacteria Urine None Seen /hpf; Bilirubin Urine Negative (Negative); Blood Urine Trace (Negative); Color Urine Yellow (Yellow); Glucose Urine UA Negative (Negative); Ketones Urine Negative (Negative); Leukocyte Esterase Ur Negative LEU/UL (Negative); Nitrate Urine Negative (Negative); Non Pathogenic Casts 0-2; Protein Urine Negative (Negative); Specific Grav Ur 1.009 (1.001-1.035); Squamous Epithelial Cell Urine None Seen /hpf (Few); Urobilinogen Urine 0.2 mg/dL (<2.0); WBC Urine 0-5 /hpf (0-3); pH Urine 7.5 (5.0-9.0)
[2024-04-25 23:59] LABS: Amphetamine Screen Urine Negative (Negative); Barbiturate Screen Urine Negative (Negative); Benzodiazepines Screen Urine Positive (Negative); Cannabinoid Screen Urine Positive (Negative); Cocaine Screen Urine Negative (Negative); Methadone Screen Urine Negative (Negative); Opiate Screen Urine Negative (Negative); Phencyclidine Screen Urine Negative (Negative)
[2024-04-25 23:59] LABS: Thyroid Stimulating Hormone 0.672 uIU/mL (0.465-4.680)
[2024-04-26] MEDS: LACTATED RINGERS 1,000 ML 999 ML IV CONT (00:36)
[2024-04-26] MEDS: AZITHROMYCIN 500 MG/NS 250 ML 500 MG/250 ML BAG 250 MG IVPB (00:36)
[2024-04-26 00:56] LABS: Fractional Inspired Oxygen 21 %; HCO3 VBG 20.3 mEq/l (24.0-30.0); PCO2 VBG 35.7 mmHg (42.0-48.0); PO2 VBG 68.9 mmHg (35.0-45.0); pH VBG 7.373 (7.300-7.400)
[2024-04-26 00:57] LABS: Device ROOM AIR
[2024-04-26 02:11] VITALS: BP 121/72; PULSE 66; RESP 17; O2SAT 96
== END 2024-04-26 03:10 | disposition home or self-care (01) ==
PROVIDERS: Emergency Provider Student in an Organized Health Care Education/Training Program
DX: G40.909 Epilepsy, unspecified, not intractable, without status epilepticus (principal); J18.9 Pneumonia, unspecified organism; Z20.822 Contact with and (suspected) exposure to COVID-19; F41.9 Anxiety disorder, unspecified; F17.210 Nicotine dependence, cigarettes, uncomplicated; Z87.442 Personal history of urinary calculi; Z79.899 Other long term (current) drug therapy
CPT/HCPCS: 36415; 70450; 71045; 80053; 80143; 80179; 80307; 81001; 82077; 82550; 82803; 83605; 84443; 84484; 85025; 85610; 85730; 87637; 87651; 93005; 96361; 96365; 96367; 96375; 99285; A9270; J0456; J0696; J1953; J7030; J7120

== ENCOUNTER 2025-01-06 09:07 | Emergency (ER) | payer BC, SELFPAY ==
--- OUTSIDE RECORDS SUMMARY | 2024-09-26 10:20 | XMS_ITS ---
Author Organization [facility]ly [facility] Address [address] [place] [address] Care Team Providers Care Milk Hauler Name Role Phone Amparo Ibarra Primary Care Provider [phone] Lizzeth Dawson [phone] REASON FOR VISIT MAT F/U Social History Sex Assigned At : Social History Observation Description Sex Assigned At Female Encounters Encounter Location Date Provider Diagnosis [address], [place] [address] 09/26/2024 Lizzeth Dawson Plan Of Treatment No Information Progress Notes * Carlene PARIKHDOB:[birth year] (39 yo F)Acc No.[id number]:09/26/2024 UNLOCKED PROGRESS NOTE Patient: Carlene TABARES Provider: Omid Dawson, MSN, RETAIL ASSISTANT, LICENSED DIRECT ENTRY MIDWIFE-BC, LICENSED DIRECT ENTRY MIDWIFE-C :1985 A ge:38 Y S ex:Female Date:09/26/2024 Address[address] Pcp:Amparo Ibarra Subjective: * Chief Complaints: * 1 . MAT F/U. * Medical History: Objective: * Vitals: Assessment: Plan: * Treatment: * Care Plan Details* * Electronic signature of Bora Dawson APRN, [id number] on 01/06/2025 at 12:33 PM SEED PRODUCTION FIELD SUPERVISOR Sign off status: Pending * Provider: Omid Dawson, MSN, RETAIL ASSISTANT, LICENSED DIRECT ENTRY MIDWIFE-BC, LICENSED DIRECT ENTRY MIDWIFE-C Date: 0 09/26/2024 Generated for Printing/Faxing/eTransmitting on: 1 03/08/2024 12:33 PM SEED PRODUCTION FIELD SUPERVISOR
--- OUTSIDE RECORDS SUMMARY | 2024-12-31 08:00 | XMS_ITS ---
Author Organization [facility] Address [address] [place] [address] Care Team Providers Care Hospital Intern Name Role Phone Lizzeth Pabon Primary Care Provider Un available Clover Tavarez Unavailable [phone] Santos Short Unavailable [phone] REASON FOR VISIT back/hip pain Medications Medication SIG (Take, Route, Frequency, Duration) Notes Start Date End Date Status levETIRAcetam 1000 MG 1 tablet Orally tw ice a day for 90 days Active Doxepin HCl 10 MG TAKE ONE CAPSULE BY MOUTH AT BEDTIME Oral for 30 Days Active Venlafaxine HCl ER 75 MG TAKE ONE CAPSUL E BY MOUTH DAILY WITH FOOD Oral for 30 Days Active ALPRAZolam 1 MG TAKE 1 TABLET BY JESSI TH ONCE A DAY Oral for 15 Days Active Venlafaxine HCl ER 150 MG TAKE 1 CAPSULE BY MOUTH EVERY DAY WITH FOOD Oral for 30 Days Active lamoTRIgine 25 MG 1 tablet Orally 4 ti mes a day for 30 days Active Gabapentin 300 MG TAKE 1 CAPSULE BY MO UTH THREE TIMES DAILY Oral for 30 Days Active Encounters Encounter Location Date Provider Diagnosis [facility] [address] 12/31/2024 Santos Short Plan Of Treatment No Information Progress Notes * ADI CarleneDOB: 4 (39 yo F)Acc No.[id number]:12/31/2024 Progress Notes Patient: Carlene LIZARRAGA Provider: JEFRY Zarate :1985 A ge:39 Y S ex:Female Date:12/31/2024 [facility] [address] Pcp:Lizzeth Pabon Subjective: * Chief Complaints: * 1 . Back/hip pain. * Medical History: * Medications: T aking Gabapentin 300 MG Capsule TAKE 1 CAPSULE BY MOUTH THREE TIMES DAILY Oral , Taking levETIRAcetam 1000 MG Tablet 1 tablet Orally twice a day , Taking Doxepin HCl 10 MG Capsule TAKE ONE CAPSULE BY MOUTH AT BEDTIME Oral , Taking Venlafaxine HCl ER 75 MG Capsule Extended Release 24 Hour TAKE ONE CAPSULE BY MOUTH DAILY WITH FOOD Oral , Taking ALPRAZolam 1 MG Tablet TAKE 1 TABLET BY MOUTH ONCE A DAY Oral , Taking Venlafaxine HCl ER 150 MG Capsule Extended Release 24 Hour TAKE 1 CAPSULE BY MOUTH EVERY DAY WITH FOOD Oral , Taking lamoTRIgine 25 MG Tablet 1 tablet Orally 4 times a day Objective: * Vitals: Assessment: Plan: * Treatment: * * Electronic signature of JEFRY Juárez on 01/06/2025 at 09:36 AM WINDOWS SYSTEMS ADMIN Sign off status: Pending * Provider: JEFRY Zarate Date: 03/02/2024 Generated for Paula negron/Nereyda/Darrylsmitting on: 03/08/2024 09:36 AM WINDOWS SYSTEMS ADMIN
[2025-01-06 09:11] VITALS: BP 151/113; PULSE 83; RESP 18; TEMP 36.4; O2SAT 98
--- OUTSIDE RECORDS SUMMARY | 2025-01-06 09:35 | XMS_ITS | Clinical Summary ---
Author Organization [facility] Address [address] [place] [address] Phone Care Team Providers Care Supply Aide Name Role Phone JENNIFER WEAVER MD Primary Care Provider [phone] Reason for Visit and Chief Complaint * PHONE CALL Problems Includes: Problems addressed during this encounter and other active Problems All Visits Onset Date Resolved Date Provider Condition S tatus Depression Unknown JAMES VIEIRALP NUCLEAR CONTROL ROOM OPERATOR-FPA, AVIATION PROJECT MANAGER-BC Active Last Documented On 2 10:22AM ; [facility] Anxiety Disorder Nos Unknown JAMES Red SHARON NUCLEAR CONTROL ROOM OPERATOR-FPA, AVIATION PROJECT MANAGER-BC Active Last Documented On 2 10:21AM ; [facility] Thomas's Esophagus Unknown JAMES Red SHARON A PRN-FPA, AVIATION PROJECT MANAGER-BC Active Last Documented On 2 10:22AM ; [facility] Bipolar II Disorder Unknown JAMES Neda SHARON A PRN-FPA, AVIATION PROJECT MANAGER-BC Active Last Documented On 2 10:21AM ; [facility] Primary Hypothyroidism 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 JAMES Red SHARON NUCLEAR CONTROL ROOM OPERATOR-F PA, AVIATION PROJECT MANAGER-BC Active Last Documented On 2 10:26AM ; [facility] Convulsive Disorder Unknown JAMES Neda SHARON A PRN-FPA, AVIATION PROJECT MANAGER-BC Active Last Documented On 2 10:34AM ; [facility] Nicotine Dependence Unknown JAMES Neda SHARON A PRN-FPA, AVIATION PROJECT MANAGER-BC Active Last Documented On 2 10:23AM ; [facility] Post-traumatic Stress Disorder Unknown DOUG SAUCEDA LILIAN HARDIN Active Last Documented On 2 10:21AM ; [facility] Plan of Treatment No Plan of Treatment Recorded Assessments Includes: Assessments from this encounter No Assessments Recorded Medical Equipment - Implanted Devices Includes: Current Devices No Medical Equipment Recorded Medications Includes: Medications discussed during this encounter and other current Medications Current Medications (continue as prescribed) Cyclobenzaprine HCl 5 MG Oral Tablet 07/05/2022 Provider: LILIAN QUISPE Diagnosis: Myalgia, unspeci fied site One tablet three times a day as needed for muscle spasm or stiffness Last Documented On 3 2:09PM By JAMES QUINTANA ; [facility] DULoxetine HCl 30 MG Oral Capsule Delayed Release Particles 07/05/2022 Provider: LILIAN JOSEPH Diagnosis: Chronic pain syn drome One capsule at bed time Last Documented On 3 2:09PM By JAMES QUINTANA ; [facility] Meloxicam 15 MG Oral Tablet 07/05/2022 Provider: LILIAN JOSEPH Diagnosis: Other spondylosi s, lumbar region One tablet daily with a meal Last Documented On 3 2:09PM By JAMES QUINTANA ; [facility] Suboxone 8-2 MG Sublingual Film 07/05/2022 Provider: Diagnosis: Twice a day. Last Documented On 3 1:37PM By JAMES QUINTANA ; [facility] Gabapentin 600 MG Oral Tablet 07/05/2022 Provider: LILIAN JOSEPH Diagnosis: Other spondylosi s, lumbar region One tablet three times a day Last Documented On 3 2:09PM By JAMES QUINTANA ; [facility] levETIRAcetam 750 MG Oral Tablet 06/16/2022 Provider : JERRELL CLANCY RN Diagnosis: Last Documented On 3 2:09PM By JAMES QUINTANA ; [facility] OLANZapine 10 MG Oral Tablet 06/15/2022 Provider: TITO CHANEY DNP ,PMORAP-BC Diagnosis: Last Documented On 3 2:10PM By JAMES QUINTANA ; [facility] ALPRAZolam 2 MG Oral Tablet 12/30/2021 Provider: Diagnosis: As needed up to 4 tablets a day. Last Documented On 2 12:12PM By JAMES QUINTANA ; [facility] Famotidine 20 MG Oral Tablet 11/22/2021 Provider: Diagnosis: Last Documented On 2 10:53AM By JAMES QUINTANA ; [facility] Zofran 8 MG Oral Tablet 11/22/2021 Provider: Diagnosis: As needed. Last Documented On 2 10:53AM By JAMES QUINTANA ; [facility] Medications Administered Includes: Administered Medications from this encounter No Administered Medications Recorded Results Includes: Results discussed during this encounter No Results Recorded For Specified Dates History of Present Illness Includes: History of Present Illness from this encounter No History of Present Illness Recorded Social History No Social History Recorded - Smoking Status Unknown Medical History Includes: Medical History addressed during this encounter No Medical History Recorded Family History Includes: Family History addressed during this encounter No Family History Recorded Review of Systems Includes: Review of Systems from this encounter No Review of Systems Recorded Mental Status Includes: Mental Status from this encounter No Mental Status Recorded Functional Status Includes: Functional Status from this encounter No Functional Status Recorded Physical Exam Includes: Physical Exam from this encounter No Physical Exam Recorded Allergies Includes: Active Allergies Substance Type Reaction Onset Date Resolved Date Statu s Steroid Intolerance 12/30/2021 Active Last Documented On 07/05/2022 1:18PM ; [facility] Note: causes Kaci Encounters Encounter Provider Location Date Check-In Time Check-Out Time Diagnosis * PHONE CALL JAMES HERRERA NUCLEAR CONTROL ROOM OPERATOR-FPALILIAN 05/23/2023 2:59PM 11:59PM Insurance Includes: Active Insurance Policies Plan Name Member ID Group # Subscriber Relationship Effect melo Dates 1 - [facility] [id number] JERRELL WOMACK Self Clinical Notes Includes: Clinical Notes from this encounter No Clinical Notes Recorded
--- OUTSIDE RECORDS SUMMARY | 2025-01-06 09:35 | XMS_ITS | Clinical Summary ---
Author Organization [facility] Address [address] [place] [address] Phone Care Team Providers Care Paint Mixer Name Role Phone JENNIFER WEAVER MD Primary Care Provider [phone] Reason for Visit and Chief Complaint * PHONE CALL Problems Includes: Problems addressed during this encounter and other active Problems All Visits Onset Date Resolved Date Provider Condition S tatus Depression Unknown JAMES VIEIRALP PROGRAM COUNSELOR-FPA, ABNORMAL PSYCHOLOGY TEACHER-BC Active Last Documented On 2 10:22AM ; [facility] Anxiety Disorder Nos Unknown JAMES Red SHARON PROGRAM COUNSELOR-FPA, ABNORMAL PSYCHOLOGY TEACHER-BC Active Last Documented On 2 10:21AM ; [facility] Thomas's Esophagus Unknown JAMES Red SHARON A PRN-FPA, ABNORMAL PSYCHOLOGY TEACHER-BC Active Last Documented On 2 10:22AM ; [facility] Bipolar II Disorder Unknown JAMES Neda SHARON A PRN-FPA, ABNORMAL PSYCHOLOGY TEACHER-BC Active Last Documented On 2 10:21AM ; [facility] Primary Hypothyroidism 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 JAMES Red SHARON PROGRAM COUNSELOR-F PA, ABNORMAL PSYCHOLOGY TEACHER-BC Active Last Documented On 2 10:26AM ; [facility] Convulsive Disorder Unknown JAMES Neda SHARON A PRN-FPA, ABNORMAL PSYCHOLOGY TEACHER-BC Active Last Documented On 2 10:34AM ; [facility] Nicotine Dependence Unknown JAMES Neda SHARON A PRN-FPA, ABNORMAL PSYCHOLOGY TEACHER-BC Active Last Documented On 2 10:23AM ; [facility] Post-traumatic Stress Disorder Unknown DOUG SAUCEDA LILIAN HARDIN Active Last Documented On 2 10:21AM ; [facility] Plan of Treatment No Plan of [...] On 3 2:09PM By JAMES QUINTANA ; [facility] DULoxetine HCl 30 MG Oral Capsule Delayed Release Particles 07/05/2022 Provider: LILIAN JOSEPH Diagnosis: Chronic pain syn drome One capsule at bed time Last Documented On 3 2:09PM By JAMES QUINTANA ; [facility] Meloxicam 15 MG Oral Tablet 07/05/2022 Provider: LILIAN JOSEPH Diagnosis: Other spondylosi s, lumbar region One tablet daily with a meal Last Documented On 3 2:09PM By JAMES QUINTANA ; [facility] Suboxone 8-2 MG Sublingual Film 07/05/2022 Provider: Diagnosis: Twice a day. Last Documented On 3 1:37PM By JAMES QUINTANA ; [facility] Gabapentin 600 MG Oral Tablet 07/05/2022 Provider: LILIAN JOSEPH Diagnosis: Other spondylosi s, lumbar region One tablet three times a day Last Documented On 3 2:09PM By JAMES QUINTANA ; [facility] levETIRAcetam 750 MG Oral Tablet 06/16/2022 Provider : JERRELL CLANCY RN Diagnosis: Last Documented On 3 2:09PM By JAMES QUINTANA ; [facility] OLANZapine 10 MG Oral Tablet 06/15/2022 Provider: TITO CHANEY DNP ,PMORAP-BC Diagnosis: Last Documented On 3 2:10PM By JAMES CHANEY-WHITLEY ; [facility] ALPRAZolam 2 MG Oral Tablet 12/30/2021 Provider: Diagnosis: As needed up to 4 tablets a day. Last Documented On 2 12:12PM By JAMES QUINTANA ; [facility] Famotidine 20 MG Oral Tablet 11/22/2021 Provider: Diagnosis: Last Documented On 2 10:53AM By JAMES QUINTANA ; [facility] Zofran 8 MG Oral Tablet 11/22/2021 Provider: Diagnosis: As needed. Last Documented On 2 10:53AM By JAMES QUINTANA ; [facility] Medications Administered Includes: Administered Medications from this [...] Documented On 07/05/2022 1:18PM ; [facility] Note: causes Kaci Encounters Encounter Provider Location Date Check-In Time Check-Out Time Diagnosis * PHONE CALL JAMES HERRERA PROGRAM COUNSELOR-FPALILIAN 11/10/2022 8:58AM 11:59PM Insurance Includes: Active Insurance Policies Plan Name Member ID Group # Subscriber Relationship Effect melo Dates 1 - [facility] [id number] JERRELL WOMACK Self Clinical Notes Includes: Clinical Notes from this encounter No Clinical Notes Recorded
--- OUTSIDE RECORDS SUMMARY | 2025-01-06 09:35 | XMS_ITS ---
Care Plan - [facility] Created on: January 06, 2025 SHELIANORBERTJEIMYJERRELL Kalen : 1985 Sex: Female Author Organization [facility] Address [address] [place] [address] Phone Care Team Providers Care Soakers Supervisor Name Role Phone OWEN DUMONT, JENNIFER Last Primary Care Provider [phone]
--- OUTSIDE RECORDS SUMMARY | 2025-01-06 09:35 | XMS_ITS | Clinical Summary ---
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 ~95% - 0 ongoing Problems Includes: Problems addressed during this encounter and other active Problems All Visits Onset Date Resolved Date Provider Condition S tatus Depression Unknown JAMES Red SHARON EDUCATION SITE MANAGER-FPA, CLOTH HAND-BC Active Last Documented On 2 10:22AM ; [facility] Anxiety Disorder Nos Unknown JAMES Red SHARON EDUCATION SITE MANAGER-FPA, [employer]-BC Active Last Documented On 2 10:21AM ; [facility] Thomas's Esophagus Unknown JAMES Red SHARON A PRN-FPA, CLOTH HAND-BC Active Last Documented On 2 10:22AM ; [facility] Bipolar II Disorder Unknown JAMES G SHARON A PRN-FPA, CLOTH HAND-BC Active Last Documented On 2 10:21AM ; [facility] Primary Hypothyroidism 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 JAMES G SHARON EDUCATION SITE MANAGER-F PA, [employer]-BC Active Last Documented On 2 10:26AM ; [facility] Convulsive Disorder Unknown JAMES Red SHARON A PRN-FPA, CLOTH HAND-BC Active Last Documented On 2 10:34AM ; [facility] Nicotine Dependence Unknown JAMES HERRERA A PRN-FPA, CLOTH HAND-BC Active Last Documented On 2 10:23AM ; [facility] Post-traumatic Stress Disorder Unknown DOUG HERRERA EDUCATION SITE MANAGER-FPA, CL[employer]-BC Active Last Documented On 2 10:21AM ; [facility] Plan of Treatment Patient was seen today for 2 chronic unstable conditions of the lumbosacral spine, and central nervous system.Without treatment patient is at risk for significant functional limitations resulting in diminished quality of life and impaired age appropriate activities of daily living. Multiple documents have been reviewed in combination with today's evaluation including imaging studies, outside provider notes, laboratory data, patient self-report questionnaires, and [place] prescription monitoring database entries. Significant social barriers exist to compliance resulting in limited prognosis. Decision to proceed with interventional therapies was made at the time of today's visit. - Last Documented On 07/05/2022 3:07PM ; [facility] Instructions to patient Intervention and counseling on cessation of tobacco use : Patient recieved smoking cessation handout Last Documented On 3 1:16PM ; [facility] Education and Decision Aids were provided during visit for: Lifestyle education Last Documented On 3 1:16PM ; [facility] Assessments Includes: Assessments from this encounter Findings - [Z01.818 - Encounter for other preprocedural examination] Visit for: preoperative exam - Last Documented On 07/05/2022 3:07PM ; [facility] - [M47.896 - Other spondylosis, lumbar region] Lumbar spondylosis - Last Documented On 07/05/2022 3:07PM ; [facility] - [M54.50 - Low back pain, unspecified] Low back pain - Last Documented On 07/05/2022 3:07PM ; [facility] - [M54.16 - Radiculopathy, lumbar region] Lumbar radiculopathy - Last Documented On 07/05/2022 3:07PM ; [facility] - [M79.10 - Myalgia, unspecified site] Myalgia and myositis - Last Documented On 07/05/2022 3:07PM ; [facility] - [F11.20 - Opioid dependence, uncomplicated] Opioid dependence with continuous use - Last Documented On 07/05/2022 3:07PM ; [facility] - [G89.4 - Chronic pain syndrome] Chronic pain syndrome - Last Documented On 07/05/2022 3:07PM ; [facility] Instructions Includes: Instructions from this encounter Instructions to patient Intervention and counseling on cessation of tobacco use : Patient recieved smoking cessation handout Last Documented On 3 1:16PM ; [facility] Education and Decision Aids were provided during visit for: Lifestyle education Last Documented On 3 1:16PM ; [facility] Medical Equipment - Implanted Devices Includes: Current Devices No Medical Equipment Recorded Medications Includes: Medications discussed during this encounter and other current Medications Discontinued / Stopped on this date on 03/08/2022 OLANZapine 5 MG Oral Tablet Provider: Diagnosis: Last Documented On 3 2:10PM By JAMES QUINTANA ; [facility] Keppra 500 MG Oral Tablet Provider: Diagnosis: Last Documented On 3 2:10PM By JAMES QUINTANA ; [facility] New / Renewed during this visit LILIAN QUISPE on 07/05/2022 Cyclobenzaprine HCl 5 MG Oral Tablet Provider: LILIAN QUISPE 30 day supply: 90 tablet, 1 refills Diagnosis: Myalgia, unspecified site One tablet three times a day as needed for muscle spasm or stiffness Pharmacy: [facility] - [address] [place] [address], [id number] - Last Documented On 3 2:09PM By JAMES QUINTANA ; [facility] DULoxetine HCl 30 MG Oral Capsule Delayed Release Particles Provider: LILIAN JOSEPH 30 day supply: 30 capsule, 1 refills Diagnosis: Chronic pain syndrome One capsule at bed time Pharmacy: [facility] - [address] [place] [address], [id number] - Last Documented On 3 2:09PM By JAMES QUINTANA ; [facility] Meloxicam 15 MG Oral Tablet Provider: RITU JOSEPH-BC 30 day supply: 30 tablet, 1 refills Diagnosis: Other spondylosis, lumbar region One tablet daily with a meal Pharmacy: [facility] - [address] [place] [address], [id number] - Last Documented On 3 2:09PM By JAMES QUINTANA ; [facility] Gabapentin 600 MG Oral Tablet Provider: LILIAN JOSEPH 30 day supply: 90 tablet, 1 refills Diagnosis: Other spondylosis, lumbar region One tablet three times a day Pharmacy: [facility] - [address] [place] [address], [id number] - Last Documented On 3 2:09PM By JAMES QUINTANA ; [facility] Current Medications (continue as prescribed) Suboxone 8-2 MG Sublingual Film 07/05/2022 Provider: Diagnosis: Twice a day. Last Documented On 3 1:37PM By JAMES QUINTANA ; [facility] levETIRAcetam 750 MG Oral Tablet 06/16/2022 Provider : JERRELL CLANCY RN Diagnosis: Last Documented On 3 2:09PM By JAMES QUINTANA ; [facility] OLANZapine 10 MG Oral Tablet 06/15/2022 Provider: TITO CHANEY DNP ,[facility] Diagnosis: Last Documented On 3 2:10PM By JAMES QUINTANA ; [facility] ALPRAZolam 2 MG Oral Tablet 12/30/2021 Provider: Diagnosis: As needed up to 4 tablets a day. Last Documented On 2 12:12PM By JAMES QUINTANA ; [facility] Famotidine 20 MG Oral Tablet 11/22/2021 Provider: Diagnosis: Last Documented On 2 10:53AM By JAMES QUINTANA ; [facility] Zofran 8 MG Oral Tablet 11/22/2021 Provider: Diagnosis: As needed. Last Documented On 2 10:53AM [facility] ; [facility] Medications Administered Includes: Administered Medications from this encounter No Administered Medications Recorded Vital Signs Includes: Vital Signs from this encounter Vital Name 07/05/2022 01:23P Blood Pressure Sitting L 128/74 BP Cuff Size Regular Pulse Rate-Sitting (bpm) 88 Temp-Oral (F) 98.2 Height (in) 64 Weight (lb) 206.9 Body Mass Index 35.5 Body Surface Area (m2) 2.0 Pain Level 6 Last Documented: On 07/05/2022 3:06PM ; [facility] Results Includes: Results discussed during this encounter No Results Recorded For Specified Dates History of Present Illness Includes: History of Present Illness from this encounter HPI PHQ-9 Score: 26 Date:03/31/2022PI Score: Date:Oswestry Score: 56 % Date: 07/05/22SOAPP-R Score: 29 HIGH Date:03/31/2022ain Location: LumbarQuality: Shooting, shock, stabbing, numbing. Radiation: Right leg. Severity: Timing: constant for the last 4 weeks. Associated Sx: Weakness. Aggravating Factors Movement.Alleviating Factors:stretches. Past Tx: Nerve Block 12 yrs ago. SI Bursa Injection 11/18/21, TFESI L5-S1 12/10/21, L3-5 thermal RFA 02/18/22 JERRELL WOMACK is a 36 year old female. - Allergy list reviewed - Problem list reviewed - Medication reconciliation performed - Medication list reviewed - Prescription Drug Monitoring Program website checked. N/A - Last dose of medication? - Pain is continuous - Primary pain location Sciatic nerve / low back/ both knees - Primary pain duration Constant - Secondary pain duration Constant - Secondary pain location Back - Pain is burning - Pain is throbbing - Pain is dull, aching - Pain is shooting - Pain is sharp - Pain is pressure like - Pain is described as numbness - Pain is described as tingling - Pain is deep - Pain is tight - Pain is like pins/needles - Relieved by medication - Relieved by repositioning - Relieved by leaning forward - Relieved by massage - Relieved by touch/rub - Relieved by distraction - Pain aggravated getting in/out of car - Pain aggravated going down stairs - Pain aggravated going up stairs - Pain aggravated lying down - Pain aggravated sitting - Pain aggravated standing - Pain aggravated by walking - Pain aggravated by bowel movements - Pain aggravated lifting - Pain aggravated by working - Pain aggravated by sex - Pain aggravated bending - Pain aggravated by light - Pain radiating to the left shoulder - Neck pain radiating to both sides - Abdominal pain radiates to both sides - Pain radiates in both hands - No vertigo - Last drug screen appropriate N/A Discussion: Patient here today for follow-up after confirmatory bilateral L1, L2, and L3 medial branch blocks. She reports upwards of 95% pain relief lasting 4 to 6 hours and slowly returning to baseline. 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 She was very pleased with her results and is ready to move towards ablation. She has had ablation in the past at lower levels so is comfortable with and understands the procedure. All questions were answered. She has had no previous adverse reaction to anesthesia. MET >8, as determined by [facility]. No recent illness. Feeling well today. PRIOR VISIT 03/31/22: Patient here today for follow-up after undergoing bilateral L3, L4, and L5 thermal radiofrequency ablation. She felt like after the procedure her pain started to improve every day little by little. However, she now reports severe right sided back pain. She states it is very difficult to do her job right now. She is not allowed to sit down or take breaks at work. She stands for six hours a day and recently they increased shifts to 8, 10, and even 11 hours. She states that by the end of six hours she is crying and in severe pain. She does not want to get fired. She likes her job but just cannot stand for that long of a period of time. After doing an evaluation it really is not the lower lumbar spine that is causing her pain. The area we treated has little to no pain. Her pain is up higher around the L2-3 area and more lateral/muscular in nature. She has a spasm in this area. Denies any injury that she knows of. She is tearful about possibly losing her job. Her PHQ 9 score is also very high.She denies suicidal thoughts. Currently it does not appear she is on medication for her depression. However, she states she was started on Olanzapine recently by her psychiatrist. They are trying to wean her down off of the Alprazolam. Today we discussed adding Duloxetine at bedtime. This should help with her depression and anxiety symptoms as well as help with pain. We also discussed adding a muscle relaxer to see if this helps. We will give her work restrictions in the meantime. She is happy with this treatment plan. Her boyfriend is here with her today and is also very pleased with this treatment plan. PRIOR VISIT 12/30/21 Overall, the patient appears to be much better today. The shock like shooting severe pain down the right leg has resolved after epidural steroid injection. She now has only axial pain with occasional pain in the back of the right thigh. The epidural did not help at all with the axial back pain. The epidural steroid injection unfortunately caused her to have caroline symptoms and she was unable to sleep for three days. History of bipolar disorder currently untreated, managing on her own. She wants to avoid future steroids at all costs. She was actually hospitalized years ago when she was put on oral steroids for several days in a row that led to psychosis. She has had nerve block in the past, over 12 years ago so unable to attain these records. It was beneficial for her at that time for her back pain. She has been doing the [facility] spine conditioning program [referring to handouts] that I gave her at her last visit, so for 6 weeks. She feels like the stretching helps to relieve pressure and feels like she is getting a little bit stronger. With High SOAPP-R score and high dose benzodiazepine use we will avoid narcotics. FIRST VISIT 11/22/21 : Patient presents with an acute onset of right lumbar radiculopathy in a S1 dermatomal pattern. She states this happened about 12 years ago during . She believes that she had an ablation at that time and has been doing well until recently. No trauma. Has some numbness and tingling in the right foot. No loss of bowel or bladder control. Having difficulty with simple daily tasks. Has to have assistance from her . She is unable to work right now and is in jeopardy of losing her job because she hasn't been able to work for the last month. Sitting for long periods, standing for long periods, and bending forward make the pain worse. She has been doing some nerve gliding exercises, yoga, and heat along with her Meloxicam and Gabapentin. All of these give her only minimal relief. At this time due to the amount of pain that she is in, I do not think she can tolerate physical therapy. We will attempt to get her approved for a lumbar epidural steroid injection. We will increase her Gabapentin dose to 400 mg three times a day. SOAPP-R score high and on high dose benzodiazepines, avoid narcotics. PHQ 9 score high, pt trying to get new PCP now. Denies suicidal thoughts. Imaging: All relevant imaging available was personally reviewed with the patient today with the following tests and results noted: MRI Lumbar Spine 11/09/21 : Facet arthropathy throughout the lumbar spine, ligamentum flavum hypertrophy at L4- L5. Circumferential broad disc bulge at L4- L5. Minimal circumferential broad disc bulge most prominent in the left at L5- S1. No high- grade spinal canal to stenosis or neural foraminal stenosis at any level Social History Description Last Updated Current smoker 11/22/2021 Last Documented On 3 1:16PM ; [facility] Difficulty walking 11/22/2021 Last Documented On 3 1:16PM ; [facility] No consumption of alcohol 11/22/2021 Last Documented On 3 1:16PM ; [facility] Not using drugs 11/22/2021 Last Documented On 3 1:16PM ; [facility] Smoking packs of cigarettes per day 1 Last Documented On 3 1:16PM ; [facility] Smoking Status Unknown Procedures and Surgical History Includes: Procedures from this encounter Procedures Code Diagnosis Performing Provider Service L ocation Service Date plan of care reviewed and agreed to Last Documented On 3 1:16PM ; [facility] plan of care reviewed and agreed to by aviva mccabe patient Last Documented On 3 1:16PM ; [facility] intervention and counseling on cessation of tobacco use : Patient recieved smoking cessation handout 4000F Last Documented On 3 1:16PM ; [facility] use of tobacco assessment performed 1000F Last Documented On 3 1:16PM ; [facility] patient screened for future fall risk: documentation of any fall with injury in past year 1100F Last Documented On 3 1:16PM ; [facility] review of medications documented 1160F Last Documented On 3 1:16PM ; [facility] screening for adult depression: impressi on and score 26 Last Documented On 3 1:16PM ; [facility] standardized depression screening: posit melo for symptoms Last Documented On 3 1:16PM ; [facility] encouragement to exercise Last Documented On 3 1:16PM ; [facility] Reviewed & agreed to staff entries. Last Documented On 3 1:16PM ; [facility] Clinical summary provided to patient Last Documented On 3 1:16PM ; [facility] Surgical History Last Updated No Pacemaker 11/22/2021 Last Documented On 3 1:16PM ; [facility] Medical History Includes: Medical History addressed during this encounter Description Last Updated Has had no fall in the last 12 months. 0 03/31/2022 Last Documented On 3 1:16PM ; [facility] Denies a fear of falling. 11/22/2021 Last Documented On 3 1:16PM ; [facility] No Pain Pump 11/22/2021 Last Documented On 3 1:16PM ; [facility] No Spinal cord stimulator 11/22/2021 Last Documented On 3 1:16PM ; [facility] Please list all surgeries: Lypoma remove d from left side of my neck 11/22/2021 Last Documented On 3 1:16PM ; [facility] Family History Includes: Family History addressed during this encounter Description Last Updated Family history of Arthritis 11/22/2021 Last Documented On 3 1:16PM ; [facility] Family history of ischemic heart disease 11/22/2021 Last Documented On 3 1:16PM ; [facility] Maternal history of Arthritis 11/22/2021 Last Documented On 3 1:16PM ; [facility] Maternal history of family history of ki dney disease 11/22/2021 Last Documented On 3 1:16PM ; [facility] Review of Systems Includes: Review of Systems from this encounter Systemic: No systemic symptoms other then noted. In poor overall health and fatigue. No recent weight loss. Head: No head symptoms other then noted. Neck: No neck pain. Eyes: Diplopia and blurred vision. Otolaryngeal: No otolaryngeal symptoms other than noted. Cardiovascular: No cardiovascular symptoms other than noted. Pulmonary: No pulmonary symptoms other than noted. Gastrointestinal: Appetite. No difficulty chewing and no dysphagia. Heartburn, nausea, vomiting, bowel movement frequency has recently changed, obstipation which is painful, bowel/bladder changes, and constipation. Genitourinary: No genitourinary symptoms other than noted. Endocrine: No endocrine symptoms other than noted. Temperature intolerance and muscle weakness. Hematologic: No easy bleeding and no tendency for easy bruising. Musculoskeletal: No musculoskeletal symptoms other than noted. Back pain, muscle aches, soft tissue swelling of a hand, of the foot, muscle cramps, pain localized to one or more joints, and joint stiffness localized to one or more joints. Neurological: No neurological symptoms other than noted, no fainting passing out with needles or medical procedures, and no ataxia. Psychological: Feeling nervous. No fear of falling. Depression and insomnia. No sleep apnea. Skin: No skin symptoms other than noted. Past Medical: No fall in the past 6 months. Mental Status Includes: Mental Status from this encounter No Mental Status Recorded Functional Status Includes: Functional Status from this encounter No Functional Status Recorded Physical Exam Includes: Physical Exam from this encounter Allergies Includes: Active Allergies Substance Type Reaction Onset Date Resolved Date Statu s Steroid Intolerance 12/30/2021 Active Last Documented On 07/05/2022 1:18PM ; [facility] Note: causes Caroline Encounters Encounter Provider Location Date Check-In Time Check-Out Time Diagnosis PAIN MANAGEMENT FOLLOW UP JAMES HERRERA EDUCATION SITE MANAGER-FPA, CLOTH HAND-BC [facility] 07/06/19 23 1:17PM 1:37PM Lumbar Spondylosis,Chr onic Pain Syndrome,Myalgi a and Myositis,Lumbar Radiculopathy,D orsopathy Low Back Pain,Visit For: Preoperative Exam,Opioid Dependence Continuous Insurance Includes: Active Insurance Policies Plan Name Member ID Group # Subscriber Relationship Effect melo Dates 1 - [facility] [id number] JERRELL WOMACK Self Clinical Notes Includes: Clinical Notes from this encounter * Progress note Date Encounter Last Documented by 07/05/2022 PAIN MANAGEMENT FOLLOW UP Last d ocumented on 07/05/2022; 3:07 PM, JAMES VIEIRALP EDUCATION SITE MANAGER-FPA, CLOTH HAND-BC; [facility] Top of Document This document represents the pre-surgical History & Physical for this patient Active Problems & Conditions - Anxiety Disorder Nos - Thomas's Esophagus - Bipolar II Disorder - Convulsive Disorder - Depression - Nicotine Dependence - Post-traumatic Stress Disorder - Primary Hypothyroidism 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 95% - 0 ongoing. History of Present Illness PHQ-9 Score: 26 Date:03/31/2022 BPI Score: Date: Oswestry Score: 56 % Date: 07/05/22 SOAPP-R Score: 29 HIGH Date:03/31/2022 Pain Location: Lumbar Quality: Shooting, shock, stabbing, numbing. Radiation: Right leg. Severity: Timing: constant for the last 4 weeks. Associated Sx: Weakness. Aggravating Factors Movement. Alleviating Factors:stretches. Past Tx: Nerve Block 12 yrs ago. SI Bursa Injection 11/18/21, TFESI L5-S1 12/10/21, L3-5 thermal RFA 02/18/22 JERRELL WOMACK is a 36 year old female. - Allergy list reviewed - Problem list reviewed - Medication reconciliation performed - Medication list reviewed - Prescription Drug Monitoring Program website checked. N/A - Last dose of medication? - Pain is continuous - Primary pain location Sciatic nerve / low back/ both knees - Primary pain duration Constant - Secondary pain duration Constant - Secondary pain location Back - Pain is burning - Pain is throbbing - Pain is dull, aching - Pain is shooting - Pain is sharp - Pain is pressure like - Pain is described as numbness - Pain is described as tingling - Pain is deep - Pain is tight - Pain is like pins/needles - Relieved by medication - Relieved by repositioning - Relieved by leaning forward - Relieved by massage - Relieved by touch/rub - Relieved by distraction - Pain aggravated getting in/out of car - Pain aggravated going down stairs - Pain aggravated going up stairs - Pain aggravated lying down - Pain aggravated sitting - Pain aggravated standing - Pain aggravated by walking - Pain aggravated by bowel movements - Pain aggravated lifting - Pain aggravated by working - Pain aggravated by sex - Pain aggravated bending - Pain aggravated by light - Pain radiating to the left shoulder - Neck pain radiating to both sides - Abdominal pain radiates to both sides - Pain radiates in both hands - No vertigo - Last drug screen appropriate N/A Discussion: Patient here today for follow-up after confirmatory bilateral L1, L2, and L3 medial branch blocks. She reports upwards of 95% pain relief lasting 4 to 6 hours and slowly returning to baseline. 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 She was very pleased with her results and is ready to move towards ablation. She has had ablation in the past at lower levels so is comfortable with and understands the procedure. All questions were answered. She has had no previous adverse reaction to anesthesia. MET >8, as determined by [facility]. No recent illness. Feeling well today. PRIOR VISIT 03/31/22: Patient here today for follow-up after undergoing bilateral L3, L4, and L5 thermal radiofrequency ablation. She felt like after the procedure her pain started to improve every day little by little. However, she now reports severe right sided back pain. She states it is very difficult to do her job right now. She is not allowed to sit down or take breaks at work. She stands for six hours a day and recently they increased shifts to 8, 10, and even 11 hours. She states that by the end of six hours she is crying and in severe pain. She does not want to get fired. She likes her job but just cannot stand for that long of a period of time. After doing an evaluation it really is not the lower lumbar spine that is causing her pain. The area we treated has little to no pain. Her pain is up higher around the L2-3 area and more lateral/muscular in nature. She has a spasm in this area. Denies any injury that she knows of. She is tearful about possibly losing her job. Her PHQ 9 score is also very high.She denies suicidal thoughts. Currently it does not appear she is on medication for her depression. However, she states she was started on Olanzapine recently by her psychiatrist. They are trying to wean her down off of the Alprazolam. Today we discussed adding Duloxetine at bedtime. This should help with her depression and anxiety symptoms as well as help with pain. We also discussed adding a muscle relaxer to see if this helps. We will give her work restrictions in the meantime. She is happy with this treatment plan. Her boyfriend is here with her today and is also very pleased with this treatment plan. PRIOR VISIT 12/30/21 Overall, the patient appears to be much better today. The shock like shooting severe pain down the right leg has resolved after epidural steroid injection. She now has only axial pain with occasional pain in the back of the right thigh. The epidural did not help at all with the axial back pain. The epidural steroid injection unfortunately caused her to have caroline symptoms and she was unable to sleep for three days. History of bipolar disorder currently untreated, managing on her own. She wants to avoid future steroids at all costs. She was actually hospitalized years ago when she was put on oral steroids for several days in a row that led to psychosis. She has had nerve block in the past, over 12 years ago so unable to attain these records. It was beneficial for her at that time for her back pain. She has been doing the [facility] spine conditioning program [referring to handouts] that I gave her at her last visit, so for 6 weeks. She feels like the stretching helps to relieve pressure and feels like she is getting a little bit stronger. With High SOAPP-R score and high dose benzodiazepine use we will avoid narcotics. FIRST VISIT 11/22/21 : Patient presents with an acute onset of right lumbar radiculopathy in a S1 dermatomal pattern. She states this happened about 12 years ago during . She believes that she had an ablation at that time and has been doing well until recently. No trauma. Has some numbness and tingling in the right foot. No loss of bowel or bladder control. Having difficulty with simple daily tasks. Has to have assistance from her . She is unable to work right now and is in jeopardy of losing her job because she hasn't been able to work for the last month. Sitting for long periods, standing for long periods, and bending forward make the pain worse. She has been doing some nerve gliding exercises, yoga, and heat along with her Meloxicam and Gabapentin. All of these give her only minimal relief. At this time due to the amount of pain that she is in, I do not think she can tolerate physical therapy. We will attempt to get her approved for a lumbar epidural steroid injection. We will increase her Gabapentin dose to 400 mg three times a day. SOAPP-R score high and on high dose benzodiazepines, avoid narcotics. PHQ 9 score high, pt trying to get new PCP now. Denies suicidal thoughts. Imaging: All relevant imaging available was personally reviewed with the patient today with the following tests and results noted: MRI Lumbar Spine 11/09/21 : Facet arthropathy throughout the lumbar spine, ligamentum flavum hypertrophy at L4- L5. Circumferential broad disc bulge at L4- L5. Minimal circumferential broad disc bulge most prominent in the left at L5- S1. No high- grade spinal canal to stenosis or neural foraminal stenosis at any level Current Medication - ALPRAZolam 2 MG Oral Tablet One tablet four times a day As needed up to 4 tablets a day., 0 days, 0 refills - Cyclobenzaprine HCl 5 MG Oral Tablet One tablet three times a day as needed for muscle spasm or stiffness, 30 days, 1 refills - DULoxetine HCl 30 MG Oral Capsule Delayed Release Particles take one capsule po qhs for pain., 30 days, 1 refills - Famotidine 20 MG Oral Tablet One tablet daily 0 days, 0 refills - Gabapentin 600 MG Oral Tablet One tablet three times a day, 30 days, 1 refills - levETIRAcetam 750 MG Oral Tablet 30 days, 0 refills - Meloxicam 15 MG Oral Tablet One tablet daily with a meal, 30 days, 1 refills - OLANZapine 10 MG Oral Tablet 30 days, 0 refills - Suboxone 8-2 MG Sublingual Film Twice a day., 0 days, 0 refills - Zofran 8 MG Oral Tablet as directed As needed., 0 days, 0 refills Past Medical/Surgical History Reported: Please list all surgeries: Lypoma removed from left side of my neck. Medical: No Spinal cord stimulator and no Pain Pump. Surgical / Procedural: No Pacemaker. Physical Trauma: Has had no fall in the last 12 months. and Denies a fear of falling. Social History Difficulty walking. Tobacco use: Cigarette smoking smoking packs of cigarettes per day 1. Alcohol: No consumption of alcohol. Drug Use: Not using drugs. Allergies - Steroid (Intolerance) Family History Arthritis Ischemic heart disease Maternal: Arthritis Kidney disease Review Of Systems Systemic: No systemic symptoms other then noted. In poor overall health and fatigue. No recent weight loss. Head: No head symptoms other then noted. Neck: No neck pain. Eyes: Diplopia and blurred vision. Otolaryngeal: No otolaryngeal symptoms other than noted. Cardiovascular: No cardiovascular symptoms other than noted. Pulmonary: No pulmonary symptoms other than noted. Gastrointestinal: Appetite. No difficulty chewing and no dysphagia. Heartburn, nausea, vomiting, bowel movement frequency has recently changed, obstipation which is painful, bowel/bladder changes, and constipation. Genitourinary: No genitourinary symptoms other than noted. Endocrine: No endocrine symptoms other than noted. Temperature intolerance and muscle weakness. Hematologic: No easy bleeding and no tendency for easy bruising. Musculoskeletal: No musculoskeletal symptoms other than noted. Back pain, muscle aches, soft tissue swelling of a hand, of the foot, muscle cramps, pain localized to one or more joints, and joint stiffness localized to one or more joints. Neurological: No neurological symptoms other than noted, no fainting passing out with needles or medical procedures, and no ataxia. Psychological: Feeling nervous. No fear of falling. Depression and insomnia. No sleep apnea. Skin: No skin symptoms other than noted. Past Medical: No fall in the past 6 months. Physical Findings - Vitals taken 07/05/2022 01:23 pm BP-Sitting L 128/74 mmHg BP Cuff Size Regular Pulse Rate-Sitting 88 bpm Temp-Oral 98.2 F Height 64 in Weight 206 lbs 14.4 oz Body Mass Index 35.5 kg/m2 Pain Level 6 Pain Level Note Lumbar Psychiatric: Psychiatric: Value PHQ9 score: 26 Constitutional: Well developed. Well nourished. No acute distress. HEENT: NC/AT. Anicteric. Clear Conjunctiva. PERRLA. MM's pink/moist. No discharge via nares. No discharge via EAC. Neck supple. No thyromegally. No palpable masses. No lymphadenopathy in cervical chain bilaterally. CVS: RRR. No murmurs. No peripheral edema. Peripheral pulses palpable in all extremities. Pulmonary: CTA bilaterally. No wheezes. No rales. No crackles. No rubs. Normal chest expansion. Spine/MSK: Non tender lower lumbar spine. Negative facet loading bilaterally. Negative straight leg test. Mild weakness in R foot plantar flexion. Tender R L2-3 paraspinous area with spasm. Gait: Not antalgic. No steppage gait. No Trendelenburg gait. No circumspected gait pattern. Heel walk normal. Toe walk normal. Tandem gait normal. Neuro: Awake. Alert. Oriented x3. DTR's intact in all extremities. DTR's equal in all extremities. No sensory deficit. No motor deficit. Psych: No apparent distress. Mood normal. Affect normal. No pain behaviors. Skin: Normal. [place], warm, dry. Assessment - [Z01.818 - Encounter for other preprocedural examination] Visit for: preoperative exam - [M47.896 - Other spondylosis, lumbar region] Lumbar spondylosis - [M54.50 - Low back pain, unspecified] Low back pain - [M54.16 - Radiculopathy, lumbar region] Lumbar radiculopathy - [M79.10 - Myalgia, unspecified site] Myalgia and myositis - [F11.20 - Opioid dependence, uncomplicated] Opioid dependence with continuous use - [G89.4 - Chronic pain syndrome] Chronic pain syndrome Therapy - Reviewed & agreed to staff entries. - Encouragement to exercise. - Intervention and counseling on cessation of tobacco use: Patient recieved smoking cessation handout. - Clinical summary provided to patient. - Plan of care reviewed and agreed to by the patient. Counseling/Education - Lifestyle education Discussed Schedule for lumbar ablation L1-3. FU after procedure. Risks, benefits and alternatives (including doing nothing) were discussed with the patient who agreed to proceed with interventional treatment despite risk and agreement that potential benefits outweighs the chance of significant harm. No need to hold NSAIDS/ASA F/U post procedure Plan StartCited - Chronic pain syndrome DULoxetine HCl 30 MG capsule One capsule at bed time, 30 days, 1 refills EndCited StartCited - Myalgia, unspecified site Cyclobenzaprine HCl 5 MG tablet One tablet three times a day as needed for muscle spasm or stiffness, 30 days, 1 refills EndCited StartCited - Other spondylosis, lumbar region Pain Management CPT/Radiofrequency Ablat: (RFA) L/S facet joint (1st joint), (RFA) L/S facet joint ea additional Instructions: Left L1, L2, L3 medial branch thermal RFA under fluoroscopy [#1 of 2] Right L1, L2, L3 medial branch thermal RFA under fluoroscopy [#2 of 2] Recently started Suboxone so anesthesia and Dr. Cerda are aware. Gabapentin 600 MG tablet One tablet three times a day, 30 days, 1 refills Meloxicam 15 MG tablet One tablet daily with a meal, 30 days, 1 refills EndCited Patient was seen today for 2 chronic unstable conditions of the lumbosacral spine, and central nervous system.Without treatment patient is at risk for significant functional limitations resulting in diminished quality of life and impaired age appropriate activities of daily living. Multiple documents have been reviewed in combination with today's evaluation including imaging studies, outside provider notes, laboratory data, patient self-report questionnaires, and [place] prescription monitoring database entries. Significant social barriers exist to compliance resulting in limited prognosis. Decision to proceed with interventional therapies was made at the time of today's visit. Notes No changes to H & P Date: Time: Signature: Practice Management Use of tobacco assessment performed and patient screened for future fall risk documentation of any fall with injury in past year Review of medications documented; Standardized depression screening: positive for symptoms and for adult impression and score 26; [35294] Established outpatient, medically appropriate H&P, moderate level decision making, 30-39 minutes. A total of 18 minutes were spent on this patient's evaluation and care, as above. Results of this interaction were communicated directly to the patient's referring and/or primary care provider. All imaging studies and test results discussed in the above document were personally reviewed and evaluated by the performing provider. For all patients on acute or chronic opioids, ongoing need for opioid analgesia is assessed at each visit with consideration of discontinuation or wean to lowest effective dose when possible and appropriate. Contents of this document have been edited for correctness, but may be subject to typographical or web software engineer errors. Verify all diagnoses, medications, dosages, and patient instructions with patient and/or the originator of this document. Health Reminders - Assess BMI satisfied 07/05/2022. - Assess Tobacco Use satisfied 07/05/2022. - Depression Screening satisfied 07/05/2022. - Follow Up Plan BMI Management satisfied 07/05/2022. - Follow up plan for Depression Screening satisfied 07/05/2022. - Medication Management satisfied 07/05/2022. - Smoking & Tobacco Cessation Intervention and Counseling satisfied 07/05/2022.
--- OUTSIDE RECORDS SUMMARY | 2025-01-06 09:36 | XMS_ITS | Clinical Summary ---
Author Organization [facility] Address [address] [place] [address] Phone Care Team Providers Care Ballistics Expert Forensic Name Role Phone JENNIFER WEAVER MD Primary Care Provider [phone] Reason for Visit and Chief Complaint * PHONE CALL Problems Includes: Problems addressed during this encounter and other active Problems All Visits Onset Date Resolved Date Provider Condition S tatus Depression Unknown JAMES VIEIRALP EXTENDED DAY TEACHER-FPA, STUDIO CONTROL OPERATOR-BC Active Last Documented On 2 10:22AM ; [facility] Anxiety Disorder Nos Unknown JAMES Red SHARON EXTENDED DAY TEACHER-FPA, STUDIO CONTROL OPERATOR-BC Active Last Documented On 2 10:21AM ; [facility] Thomas's Esophagus Unknown JAMES Red SHARON A PRN-FPA, STUDIO CONTROL OPERATOR-BC Active Last Documented On 2 10:22AM ; [facility] Bipolar II Disorder Unknown JAMES Neda SHARON A PRN-FPA, STUDIO CONTROL OPERATOR-BC Active Last Documented On 2 10:21AM ; [facility] Primary Hypothyroidism 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 JAMES Red SHARON EXTENDED DAY TEACHER-F PA, STUDIO CONTROL OPERATOR-BC Active Last Documented On 2 10:26AM ; [facility] Convulsive Disorder Unknown JAMES Neda SHARON A PRN-FPA, STUDIO CONTROL OPERATOR-BC Active Last Documented On 2 10:34AM ; [facility] Nicotine Dependence Unknown JAMES Neda SHARON A PRN-FPA, STUDIO CONTROL OPERATOR-BC Active Last Documented On 2 10:23AM ; [facility] Post-traumatic Stress Disorder Unknown DOUG SAUCEDA LILIAN HARDIN Active Last Documented On 2 10:21AM ; [facility] Plan of Treatment No Plan of Treatment [...] On 3 2:09PM By JAMES QUINTANA ; [facility] DULoxetine HCl 30 MG Oral Capsule Delayed Release Particles 07/05/2022 Provider: LILIAN JOSEPH Diagnosis: Chronic pain syn drome One capsule at bed time Last Documented On 3 2:09PM By JAMES QUINTANA ; [facility] Meloxicam 15 MG Oral Tablet 07/05/2022 Provider: LILIAN JOSEPH Diagnosis: Other spondylosi s, lumbar region One tablet daily with a meal Last Documented On 3 2:09PM By JAMES QUINTANA ; [facility] Suboxone 8-2 MG Sublingual Film 07/05/2022 Provider: Diagnosis: Twice a day. Last Documented On 3 1:37PM By JAMES QUINTANA ; [facility] Gabapentin 600 MG Oral Tablet 07/05/2022 Provider: LILIAN JOSEPH Diagnosis: Other spondylosi s, lumbar region One tablet three times a day Last Documented On 3 2:09PM By JAMES QUINTANA ; [facility] levETIRAcetam 750 MG Oral Tablet 06/16/2022 Provider : JERRELL CLANCY RN Diagnosis: Last Documented On 3 2:09PM By JAMES QUINTANA ; [facility] OLANZapine 10 MG Oral Tablet 06/15/2022 Provider: TITO CHANEY DNP ,PMORAP-BC Diagnosis: Last Documented On 3 2:10PM By JAMES QUINTANA ; [facility] ALPRAZolam 2 MG Oral Tablet 12/30/2021 Provider: Diagnosis: As needed up to 4 tablets a day. Last Documented On 2 12:12PM By JAMES QUINTANA ; [facility] Famotidine 20 MG Oral Tablet 11/22/2021 Provider: Diagnosis: Last Documented On 2 10:53AM By JAMES QUINTANA ; [facility] Zofran 8 MG Oral Tablet 11/22/2021 Provider: Diagnosis: As needed. Last Documented On 2 10:53AM By JAMES QUINTANA ; [facility] Medications Administered Includes: Administered Medications from this [...] Active Last Documented On 07/05/2022 1:18PM ; [facility] Note: causes Kaci Encounters Encounter Provider Location Date Check-In Time Check-Out Time Diagnosis * PHONE CALL JAMES HERRERA EXTENDED DAY TEACHER-FPALILIAN 05/16/2022 11:28AM 11:59PM Insurance Includes: Active Insurance Policies Plan Name Member ID Group # Subscriber Relationship Effect [id number] Dates 1 - [facility] [id number] JERRELL WOMACK Self Clinical Notes Includes: Clinical Notes from this encounter No Clinical Notes Recorded
--- OUTSIDE RECORDS SUMMARY | 2025-01-06 09:36 | XMS_ITS ---
Author Organization [facility] Address [address] [place] [address] Phone Care Team Providers Care Chopped Strand Operator Name Role Phone OWEN DUMONT, JENNIFER Last Primary Care Provider [phone] Problems Includes: Active, inactive, and resolved Problems All Visits Onset Date Resolved Date Provider Condition S tatus Depression Unknown JAMES Red SHARON REHAB AIDE-FPA, CREDIT INTERN-BC Active Last Documented On 2 10:22AM ; [facility] Anxiety Disorder Nos Unknown JAMES Red SHARON REHAB AIDE-FPA, CREDIT INTERN-BC Active Last Documented On 2 10:21AM ; [facility] Thomas's Esophagus Unknown JAMES Neda SHARON A PRN-FPA, CREDIT INTERN-BC Active Last Documented On 2 10:22AM ; [facility] Bipolar II Disorder Unknown JAMES G SHARON A PRN-FPA, CREDIT INTERN-BC Active Last Documented On 2 10:21AM ; [facility] Primary Hypothyroidism 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 JAMES Neda SHARON REHAB AIDE-F PA, CREDIT INTERN-BC Active Last Documented On 2 10:26AM ; [facility] Convulsive Disorder Unknown JAMES G SHARON A PRN-FPA, CREDIT INTERN-BC Active Last Documented On 2 10:34AM ; [facility] Nicotine Dependence Unknown JAMES G SHARON A PRN-FPA, CREDIT INTERN-BC Active Last Documented On 2 10:23AM ; [facility] Post-traumatic Stress Disorder Unknown DOUG SA G SHARON REHAB AIDE-FPA, CREDIT INTERN-BC Active Last Documented On 2 10:21AM ; [facility] Plan of Treatment Referrals To Diagnosis Pain Management [address] [address] - Radiculopathy, lumbar region Note: consent for bilateral L5-S1 transforaminal epidural steroid injection under fluoroscopyNo need to hold NSAIDs/ASA Last Documented On 2 10:37AM ; [facility] Pain Management [address] [address] - Radiculopathy, lumbar region Note: consent for bilateral L5-S1 transforaminal epidural steroid injection under fluoroscopyNo need to hold NSAIDs/ASA Last Documented On 2 1:40PM ; [facility] Pain Management [address] [address] - Other spondylosis, lumbar region Note: consent for bilateral L3, L4, and L5 medial branch blocks under fluoroscopy Last Documented On 2 10:43AM ; [facility] Pain Management [address] [address] - Other spondylosis, lumbar region Note: consent for confirmato ry bilateral L3, L4, L5 medial branch blocks [levels L4-5 and L5-S1] Last Documented On 2 12:46PM ; [facility] Pain Management [address] [address] - Other spondylosis, lumbar region Note: consent for R L3, L4, L5 thermal RFA under fluorscopy [levles L4-5 and L5- S1 #1 of2]consent for L L3, L4, L5 thermal RFA under fluorscopy [levles L4-5 and L5-S1 #2 of2] Last Documented On 3 3:41PM ; [facility] Pain Management [address] [address] - Other spondylosis, lumbar region Note: consent for bilateral L1, L2, L3 medial branch blocks under fluoroscopy Last Documented On 3 1:26PM ; [facility] Pain Management [facility] - [address] [place] [address] - Other spondylosis, lumbar region Note: consent for bilateral L1, L2, L3 medial branch blocks under fluoroscopy Last Documented On 3 1:26PM ; [facility] Instructions to patient Intervention and counseling on cessation of tobacco use : Patient recieved smoking cessation handout Last Documented On 3 1:16PM ; [facility] Intervention and counseling on cessation of tobacco use : Patient recieved smoking cessation handout Last Documented On 3 11:13AM ; [facility] Intervention and counseling on cessation of tobacco use : Patient recieved smoking cessation handout Last Documented On 3 3:28PM ; [facility] Intervention and counseling on cessation of tobacco use : Patient recieved smoking cessation handout Last Documented On 3 10:04AM ; [facility] Intervention and counseling on cessation of tobacco use : Patient recieved smoking cessation handout Last Documented On 2 10:39AM ; [facility] Intervention and counseling on cessation of tobacco use : Patient recieved smoking cessation handout Last Documented On 2 10:12AM ; [facility] Intervention and counseling on cessation of tobacco use : Patient recieved smoking cessation handout Last Documented On 2 10:19AM ; [facility] Intervention and counseling on cessation of tobacco use : Patient recieved smoking cessation handout Last Documented On 2 9:24AM ; [facility] Education and Decision Aids were provided during visit for: Lifestyle education Last Documented On 3 1:16PM ; [facility] Lifestyle education Last Documented On 3 11:12AM ; [facility] Lifestyle education Last Documented On 3 3:28PM ; [facility] Lifestyle education Last Documented On 3 10:04AM ; [facility] Lifestyle education Last Documented On 2 10:39AM ; [facility] Lifestyle education Last Documented On 2 10:12AM ; [facility] Lifestyle education Last Documented On 2 10:19AM ; [facility] Lifestyle education Last Documented On 2 10:33AM ; [facility] Assessments Includes: Assessments for all patient encounters Findings Encounter Date [Z01.818 - Encounter for ot er preprocedural examination] visit for: preoperative exam PAIN MANAGEMENT FOLLOW UP with JAMES Neda SHARON REHAB AIDE-FPA, CREDIT INTERN-BC 07/05/2022 Last Documented On 3 3:07PM ; [facility] Chronic pain syndrome PAIN MANAGEMENT FO LLOW UP with JAMES Neda SHARON REHAB AIDE-FPA, CREDIT INTERN-BC 07/05/2022 Last Documented On 3 3:07PM ; [facility] Low back pain PAIN MANAGEMENT FOLL OW UP with JAMES Neda SHARON REHAB AIDE-FPA, CREDIT INTERN-BC 07/05/2022 Last Documented On 3 3:07PM ; [facility] Lumbar radiculopathy PAIN MANAGEMENT FOL LOW UP with JAMES Neda SHARON REHAB AIDE-FPA, CREDIT INTERN-BC 07/05/2022 Last Documented On 3 3:07PM ; [facility] Lumbar spondylosis PAIN MANAGEMENT FOLL OW UP with JAMES Neda SHARON REHAB AIDE-FPA, CREDIT INTERN-BC 07/05/2022 Last Documented On 3 3:07PM ; [facility] Myalgia and myositis PAIN MANAGEMENT FOL LOW UP with JAMES Neda SHARON REHAB AIDE-FPA, CREDIT INTERN-BC 07/05/2022 Last Documented On 3 3:07PM ; [facility] Opioid dependence with continuous use PA IN MANAGEMENT FOLLOW UP with JAMES Red SHARON REHAB AIDE-FPA, CREDIT INTERN-BC 07/05/2022 Last Documented On 3 3:07PM ; [facility] Chronic pain syndrome TELEHEALTH with JAMES Neda SHARON REHAB AIDE-FPA, CREDIT INTERN-BC 05/23/2022 Last Documented On 3 11:38AM ; [facility] Low back pain TELEHEALTH with JAMES G SHARON A PRN-FPA, CREDIT INTERN-BC 05/23/2022 Last Documented On 3 11:38AM ; [facility] Lumbar radiculopathy TELEHEALTH with JAMES Neda K ULP REHAB AIDE-FPA, CREDIT INTERN-BC 05/23/2022 Last Documented On 3 11:38AM ; [facility] Lumbar spondylosis TELEHEALTH with JAMES Neda KUL P REHAB AIDE-FPA, CREDIT INTERN-BC 05/23/2022 Last Documented On 3 11:38AM ; [facility] Myalgia and myositis TELEHEALTH with JAMES G K ULP REHAB AIDE-FPA, CREDIT INTERN-BC 05/23/2022 Last Documented On 3 11:38AM ; [facility] Chronic pain syndrome TELEHEALTH with JAMES G SHARON REHAB AIDE-FPA, CREDIT INTERN-BC 04/19/2022 Last Documented On 3 4:03PM ; [facility] Low back pain TELEHEALTH with JAMES Neda SHARON A PRN-FPA, CREDIT INTERN-BC 04/19/2022 Last Documented On 3 4:03PM ; [facility] Lumbar radiculopathy TELEHEALTH with JAMES G K ULP REHAB AIDE-FPA, CREDIT INTERN-BC 04/19/2022 Last Documented On 3 4:03PM ; [facility] Lumbar spondylosis TELEHEALTH with JAMES Neda KUL P REHAB AIDE-FPA, CREDIT INTERN-BC 04/19/2022 Last Documented On 3 4:03PM ; [facility] Myalgia and myositis TELEHEALTH with JAMES G K ULP REHAB AIDE-FPA, CREDIT INTERN-BC 04/19/2022 Last Documented On 3 4:03PM ; [facility] Chronic pain syndrome PAIN MANAGEMENT FO LLOW UP with JAMES G SHARON REHAB AIDE-FPA, CREDIT INTERN-BC 03/31/2022 Last Documented On 3 5:03PM ; [facility] Low back pain PAIN MANAGEMENT FOLL OW UP with JAMES G SHARON REHAB AIDE-FPA, CREDIT INTERN-BC 03/31/2022 Last Documented On 3 5:03PM ; [facility] Lumbar radiculopathy PAIN MANAGEMENT FOL LOW UP with JAMES Neda SHARON REHAB AIDE-FPA, CREDIT INTERN-BC 03/31/2022 Last Documented On 3 5:03PM ; [facility] Lumbar spondylosis PAIN MANAGEMENT FOLL OW UP with JAMES Neda SHARON REHAB AIDE-FPA, CREDIT INTERN-BC 03/31/2022 Last Documented On 3 5:03PM ; [facility] Myalgia and myositis PAIN MANAGEMENT FOL LOW UP with JAMES Neda SHARON REHAB AIDE-FPA, CREDIT INTERN-BC 03/31/2022 Last Documented On 3 5:03PM ; [facility] Chronic pain syndrome TELEHEALTH with JAMES Neda SHARON REHAB AIDE-FPA, CREDIT INTERN-BC 02/04/2022 Last Documented On 2 12:47PM ; [facility] Low back pain TELEHEALTH with JAMES Neda SHARON A PRN-FPA, CREDIT INTERN-BC 02/04/2022 Last Documented On 2 12:47PM ; [facility] Lumbar radiculopathy TELEHEALTH with JAMES G K ULP REHAB AIDE-FPA, CREDIT INTERN-BC 02/04/2022 Last Documented On 2 12:47PM ; [facility] Lumbar spondylosis TELEHEALTH with JAMES Neda KUL P REHAB AIDE-FPA, CREDIT INTERN-BC 02/04/2022 Last Documented On 2 12:47PM ; [facility] Chronic pain syndrome TELEHEALTH with JAMES G SHARON REHAB AIDE-FPA, CREDIT INTERN-BC 01/26/2022 Last Documented On 2 10:44AM ; [facility] Low back pain TELEHEALTH with JAMES G SHARON A PRN-FPA, CREDIT INTERN-BC 01/26/2022 Last Documented On 2 10:44AM ; [facility] Lumbar radiculopathy TELEHEALTH with JAMES G K ULP REHAB AIDE-FPA, CREDIT INTERN-BC 01/26/2022 Last Documented On 2 10:44AM ; [facility] Lumbar spondylosis TELEHEALTH with JAMES G ISHAL P REHAB AIDE-FPA, CREDIT INTERN-BC 01/26/2022 Last Documented On 2 10:44AM ; [facility] Chronic pain syndrome PAIN MANAGEMENT FO LLOW UP with JAMES Red SHARON REHAB AIDE-FPA, CREDIT INTERN-BC 12/30/2021 Last Documented On 2 12:17PM ; [facility] Low back pain PAIN MANAGEMENT FOLL OW UP with JAMES Red SHARON REHAB AIDE-FPA, CREDIT INTERN-BC 12/30/2021 Last Documented On 2 12:17PM ; [facility] Lumbar radiculopathy PAIN MANAGEMENT FOL LOW UP with JAMES Neda SHARON REHAB AIDE-FPA, CREDIT INTERN-BC 12/30/2021 Last Documented On 2 12:17PM ; [facility] Lumbar spondylosis PAIN MANAGEMENT FOLL OW UP with JAMES Neda SHARON REHAB AIDE-FPA, CREDIT INTERN-BC 12/30/2021 Last Documented On 2 12:17PM ; [facility] Chronic pain syndrome PAIN MANAGEMENT NE W CONSULT with JAMES Red SHARON REHAB AIDE-FPA, CREDIT INTERN-BC 11/22/2021 Last Documented On 2 10:53AM ; [facility] Low back pain PAIN MANAGEMENT NEW CONSULT with JAMES Red SHARON REHAB AIDE-FPA, CREDIT INTERN-BC 11/22/2021 Last Documented On 2 10:53AM ; [facility] Lumbar radiculopathy PAIN MANAGEMENT NEW CONSULT with JAMES Red SHARON REHAB AIDE-FPA, CREDIT INTERN-BC 11/22/2021 Last Documented On 2 10:53AM ; [facility] Lumbar spondylosis PAIN MANAGEMENT NEW CONSULT with JAMES G SHARON REHAB AIDE-FPA, CREDIT INTERN-BC 11/22/2021 Last Documented On 2 10:53AM ; [facility] Instructions Includes: Instructions for all patient encounters Instructions to patient Intervention and counseling on cessation of tobacco use : Patient recieved smoking cessation handout Last Documented On 3 1:16PM ; [facility] Intervention and counseling on cessation of tobacco use : Patient recieved smoking cessation handout Last Documented On 3 11:13AM ; [facility] Intervention and counseling on cessation of tobacco use : Patient recieved smoking cessation handout Last Documented On 3 3:28PM ; [facility] Intervention and counseling on cessation of tobacco use : Patient recieved smoking cessation handout Last Documented On 3 10:04AM ; [facility] Intervention and counseling on cessation of tobacco use : Patient recieved smoking cessation handout Last Documented On 2 10:39AM ; [facility] Intervention and counseling on cessation of tobacco use : Patient recieved smoking cessation handout Last Documented On 2 10:12AM ; [facility] Intervention and counseling on cessation of tobacco use : Patient recieved smoking cessation handout Last Documented On 2 10:19AM ; [facility] Intervention and counseling on cessation of tobacco use : Patient recieved smoking cessation handout Last Documented On 2 9:24AM ; [facility] Education and Decision Aids were provided during visit for: Lifestyle education Last Documented On 3 1:16PM ; [facility] Lifestyle education Last Documented On 3 11:12AM ; [facility] Lifestyle education Last Documented On 3 3:28PM ; [facility] Lifestyle education Last Documented On 3 10:04AM ; [facility] Lifestyle education Last Documented On 2 10:39AM ; [facility] Lifestyle education Last Documented On 2 10:12AM ; [facility] Lifestyle education Last Documented On 2 10:19AM ; [facility] Lifestyle education Last Documented On 2 10:33AM ; [facility] Medical Equipment - Implanted Devices Includes: Current and historical Devices No Medical Equipment Recorded Medications Includes: Current and historical Medications Current Medications (continue as prescribed) Cyclobenzaprine HCl 5 MG Oral Tablet 07/05/2022 Provider: LILIAN QUISPE Diagnosis: Myalgia, unspeci fied site One tablet three times a day as needed for muscle spasm or stiffness Last Documented On 3 2:09PM By JAMES CHANEY-BC ; [facility] DULoxetine HCl 30 MG Oral Capsule Delayed Release Particles 07/05/2022 Provider: LILIAN JOSEPH Diagnosis: Chronic pain syn drome One capsule at bed time Last Documented On 3 2:09PM By JAMES CHANEYWHITLEY ; [facility] Meloxicam 15 MG Oral Tablet 07/05/2022 Provider: LILIAN JOSEPH Diagnosis: Other spondylosi s, lumbar region One tablet daily with a meal Last Documented On 3 2:09PM By JAMES HERRERA [facility] ; [facility] Suboxone 8-2 MG Sublingual Film 07/05/2022 Provider: Diagnosis: Twice a day. Last Documented On 3 1:37PM By JAMES QUINTANA ; [facility] Gabapentin 600 MG Oral Tablet 07/05/2022 Provider: LILIAN JOSEPH Diagnosis: Other spondylosi s, lumbar region One tablet three times a day Last Documented On 3 2:09PM By JAMES [facility]ERRERA [facility] ; [facility] levETIRAcetam 750 MG Oral Tablet 06/16/2022 Provider : JERRELL CLANCY RN Diagnosis: Last Documented On 3 2:09PM [facility] ; [facility] OLANZapine 10 MG Oral Tablet 06/15/2022 Provider: TITO CHANEY DNP ,[facility] Diagnosis: Last Documented On 3 2:10PM By JAMES [facility]ERRERA [facility] ; [facility] ALPRAZolam 2 MG Oral Tablet 12/30/2021 Provider: Diagnosis: As needed up to 4 tablets a day. Last Documented On 2 12:12PM By JAMES CHANEYWHITELY ; [facility] Famotidine 20 MG Oral Tablet 11/22/2021 Provider: Diagnosis: Last Documented On 2 10:53AM By JAMES HERRERA [facility] ; [facility] Zofran 8 MG Oral Tablet 11/22/2021 Provider: Diagnosis: As needed. Last Documented On 2 10:53AM By JAMES QUINTANA ; [facility] Past Medications on file Gabapentin 600 MG Oral Tablet 05/23/2022 - 07/05/2022 Provider: LILIAN QUISPE Diagnosis: Other spondylosi s, lumbar region One tablet three times a day Last Documented On 3 2:09PM By JAMES QUINTANA ; [facility] DULoxetine HCl 30 MG Oral Capsule Delayed Release Particles 05/23/2022 - 07/05/2022 Provider: LILIAN QUISPE Diagnosis: Chronic pain syn drome take one capsule po qhs for pain. Last Documented On 3 2:09PM By JAMES QUINTANA ; [facility] Cyclobenzaprine HCl 5 MG Oral Tablet 05/23/2022 - 07/05/2022 Provider: LILIAN QUISPE Diagnosis: Myalgia, unspeci fied site One tablet three times a day as needed for muscle spasm or stiffness Last Documented On 3 2:09PM By JAMES QUINTANA ; [facility] Meloxicam 15 MG Oral Tablet 05/23/2022 - 07/05/2022 Provider: LILIAN QUISPE Diagnosis: Other spondylosi s, lumbar region One tablet daily with a meal Last Documented On 3 2:09PM By JAMES QUINTANA ; [facility] DULoxetine HCl 30 MG Oral Capsule Delayed Release Particles 04/19/2022 - 05/23/2022 Provider: LILIAN QUISPE Diagnosis: Chronic pain syn drome take one capsule po qhs for pain. Last Documented On 3 11:36AM By JAMES QUINTANA ; [facility] DULoxetine HCl 30 MG Oral Capsule Delayed Release Particles 04/08/2022 - 04/19/2022 Provider: THALIA Lovell Diagnosis: Chronic pain syn drome take one capsule po qhs for pain. Last Documented On 3 4:03PM By JAMES QUINTANA ; [facility] Gabapentin 600 MG Oral Tablet 03/31/2022 - 05/23/2022 Provider: LILIAN QUISPE Diagnosis: Other spondylosi s, lumbar region One tablet three times a day Last Documented On 3 11:36AM By JAMES QUINTANA ; [facility] Meloxicam 15 MG Oral Tablet 03/31/2022 - 05/23/2022 Provider: LILIAN QUISPE Diagnosis: Other spondylosi s, lumbar region One tablet daily with a meal Last Documented On 3 11:36AM By JAMES QUINTANA ; [facility] Cyclobenzaprine HCl 5 MG Oral Tablet 03/31/2022 - 05/23/2022 Provider: LILIAN QUISPE Diagnosis: Myalgia, unspeci fied site One tablet three times a day as needed for muscle spasm or stiffness Last Documented On 3 11:36AM By JAMES QUINTANA ; [facility] DULoxetine HCl 60 MG Oral Capsule Delayed Release Particles 03/31/2022 - 04/19/2022 Provider: LILIAN QUISPE Diagnosis: Myalgia, unspeci fied site 1 capsule daily at bedtime Last Documented On 3 3:32PM By Ksenia CRUZ ; [facility] DULoxetine HCl 30 MG Oral Capsule Delayed Release Particles 03/31/2022 - 04/19/2022 Provider: LILIAN QUISPE Diagnosis: Myalgia, unspeci fied site take 1 capsule at bedtime fo r 1 week then increase to 60mg dose Last Documented On 3 3:37PM By JAMES QUINTANA ; [facility] OLANZapine 5 MG Oral Tablet 03/08/2022 - 07/05/2022 Pr ovider: Diagnosis: Last Documented On 3 2:10PM By JAMES QUINTANA ; [facility] Meloxicam 15 MG Oral Tablet 02/04/2022 - 03/31/2022 Provider: LILIAN QUISPE Diagnosis: Other spondylosi s, lumbar region One tablet daily with a meal Last Documented On 3 5:02PM By JAMES QUINTANA ; [facility] Gabapentin 600 MG Oral Tablet 02/04/2022 - 03/31/2022 Provider: LILIAN QUISPE Diagnosis: Other spondylosi s, lumbar region One tablet three times a day Last Documented On 3 5:02PM By JAMES QUINTANA ; [facility] Gabapentin 400 MG Oral Capsule 12/30/2021 - 03/31/2022 Provider: LILIAN QUISPE Diagnosis: Radiculopathy, l umbar region 1 capsule three times a day Last Documented On 3 10:15AM By JAMES QUINTANA ; [facility] ALPRAZolam 2 MG Oral Tablet 2021 - 12/30/2021 Pr ovider: PRANAY JOHN MD Diagnosis: Last Documented On 2 11:51AM By JAMES QUINTANA ; [facility] Gabapentin 300 MG Oral Capsule 11/22/2021 - 12/30/2021 Provider: Diagnosis: Last Documented On 2 11:50AM By JAMES QUINTANA ; [facility] Gabapentin 400 MG Oral Capsule 11/22/2021 - 12/30/2021 Provider: LILIAN QUISPE Diagnosis: Radiculopathy, l umbar region 1 capsule three times a day Last Documented On 2 12:10PM By JAMES QUINTANA ; [facility] ALPRAZolam 2 MG Oral Tablet 11/22/2021 - 12/30/2021 Pr ovider: Diagnosis: As needed up to 4 tablets a day. Last Documented On 2 11:53AM By JAMES QUINTANA ; [facility] ALPRAZolam 2 MG Oral Tablet 11/22/2021 - 11/22/2021 Pr ovider: Diagnosis: Last Documented On 2 9:35AM By Ksenia CRUZ ; [facility] Keppra 500 MG Oral Tablet 11/22/2021 - 07/05/2022 Prov ider: Diagnosis: Last Documented On 3 2:10PM By JAMES HERRERA [facility] ; [facility] Meloxicam 15 MG Oral Tablet 11/22/2021 - 02/04/2022 Pr ovider: Diagnosis: Last Documented On 2 10:57AM By [facility] ; [facility] Medications Administered Includes: Administered Medications in patient's chart No Administered Medications Recorded Results Includes: Results from 01/07/2024 through 01/06/2025 No Results Recorded For Specified Dates History of Present Illness History of Present Illness not supported for this document type No History of Present Illness Recorded Social History Description Last Updated Current smoker 11/22/2021 Last Documented On 2 10:53AM ; [facility] Difficulty walking 11/22/2021 Last Documented On 2 10:53AM ; [facility] No consumption of alcohol 11/22/2021 Last Documented On 2 10:53AM ; [facility] Not using drugs 11/22/2021 Last Documented On 2 10:53AM ; [facility] Smoking packs of cigarettes per day 1 Last Documented On 2 10:53AM ; [facility] Smoking Status Unknown Procedures and Surgical History Surgical History Last Updated No Pacemaker 11/22/2021 Last Documented On 2 10:53AM ; [facility] Medical History Includes: Medical History in patient's chart Description Last Updated Has had no fall in the last 12 months. 0 03/31/2022 Last Documented On 3 5:03PM ; [facility] Denies a fear of falling. 11/22/2021 Last Documented On 2 10:53AM ; [facility] No Pain Pump 11/22/2021 Last Documented On 2 10:53AM ; [facility] No Spinal cord stimulator 11/22/2021 Last Documented On 2 10:53AM ; [facility] Please list all surgeries: Lypoma remove d from left side of my neck 11/22/2021 Last Documented On 2 10:53AM ; [facility] Family History Includes: Family History in patient's chart Description Last Updated Family history of Arthritis 11/22/2021 Last Documented On 2 10:53AM ; [facility] Family history of ischemic heart disease 11/22/2021 Last Documented On 2 10:53AM ; [facility] Maternal history of Arthritis 11/22/2021 Last Documented On 2 10:53AM ; [facility] Maternal history of family history of ki dney disease 11/22/2021 Last Documented On 2 10:53AM ; [facility] Review of Systems Review of Systems not supported for this document type No Review of Systems Recorded Mental Status No Mental Status Recorded Functional Status No Functional Status Recorded Physical Exam Physical Exam not supported for this document type No Physical Exam Recorded Allergies Includes: Active, inactive, and resolved Allergies Substance Type Reaction Onset Date Resolved Date Statu s Steroid Intolerance 12/30/2021 Active Last Documented On 07/05/2022 1:18PM ; [facility] Note: causes Kaci Insurance Includes: Active Insurance Policies Plan Name Member ID Group # Subscriber Relationship Effect melo Dates 1 - [facility] [id number] JERRELL WOMACK Self Clinical Notes Includes: Signed Clinical Notes starting from 03/18/2022 No Clinical Notes Recorded
--- OUTSIDE RECORDS SUMMARY | 2025-01-06 09:36 | XMS_ITS | Patient Health Record ---
Author Organization [facility] Address [address] [place] [address] Care Team Providers Care Museum Service Scheduler Name Role Phone Lizzeth Pabon Primary Care Provider Un available Clover Tavarez Unavailable [phone] Santos Short Unavailable [phone] Reason For Referral No Information Medications Medication SIG (Take, Route, Frequency, Duration) Notes Start Date End Date Status lamoTRIgine 25 MG 1 tablet Orally 4 ti mes a day for 30 days Active Gabapentin 300 MG TAKE 1 CAPSULE BY [place] UTH THREE TIMES DAILY Oral for 30 Days Active levETIRAcetam 1000 MG 1 tablet Orally tw [...] WITH FOOD Oral for 30 Days Active Plan Of Treatment No Information Insurance Providers Payer Name Payer Address Payer Phone Subscriber Number Group Number Insured Name Patient Relationship to Insured Coverage Start Date [facility]age End [facility] [id number] [place] [id number] Carlene Rico Self - patient is the insured
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
--- OUTSIDE RECORDS SUMMARY | 2025-01-06 09:37 | XMS_ITS | Clinical Summary ---
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 Name Role Phone JENNIFER WEAVER MD Primary Care Provider [phone] Reason for Visit and Chief Complaint The Chief Complaint is: FU Problems Includes: Problems addressed during this encounter and other active Problems All Visits Onset Date Resolved Date Provider Condition S tatus Depression Unknown JAMES Red SHARON PRODUCE ASSISTANT-FPA, ALARM SERVICE TECHNICIAN-BC Active Last Documented On 2 10:22AM ; [facility] Anxiety Disorder Nos Unknown JAMES Red SHARON PRODUCE ASSISTANT-FPA, ALARM SERVICE TECHNICIAN-BC Active Last Documented On 2 10:21AM ; [facility] Thomas's Esophagus Unknown JAMES Red SHARON A PRN-FPA, ALARM SERVICE TECHNICIAN-BC Active Last Documented On 2 10:22AM ; [facility] Bipolar II Disorder Unknown JAMES Neda SHARON A PRN-FPA, ALARM SERVICE TECHNICIAN-BC Active Last Documented On 2 10:21AM ; [facility] Primary Hypothyroidism 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 JAMES Red SHARON PRODUCE ASSISTANT-F PA, ALARM SERVICE TECHNICIAN-BC Active Last Documented On 2 10:26AM ; [facility] Convulsive Disorder Unknown JAMES G SHARON A PRN-FPA, ALARM SERVICE TECHNICIAN-BC Active Last Documented On 2 10:34AM ; [facility] Nicotine Dependence Unknown JAMES G SHARON A PRN-FPA, ALARM SERVICE TECHNICIAN-BC Active Last Documented On 2 10:23AM ; [facility] Post-traumatic Stress Disorder Unknown DOUG SA G SHARON PRODUCE ASSISTANT-FPA, ALARM SERVICE TECHNICIAN-BC Active Last Documented On 2 10:21AM ; [facility] Plan of Treatment Patient was [...] notes, laboratory data, patient self-report questionnaires, and [place] prescription monitoring database entries. Significant social barriers exist to compliance resulting in limited prognosis. Decision to proceed with interventional therapies was made at the time of today's visit. - Last Documented On 05/23/2022 11:38AM ; [facility] Referrals To Diagnosis Pain Management [address] [address] - Other spondylosis, lumbar region Note: consent for bilateral L1, L2, L3 medial branch blocks under fluoroscopy Last Documented On 3 1:26PM ; [facility] Instructions to patient Intervention and counseling on cessation of tobacco use : Patient recieved smoking cessation handout Last Documented On 3 11:13AM ; [facility] Education and Decision Aids were provided during visit for: Lifestyle education Last Documented On 3 11:12AM ; [facility] Assessments Includes: Assessments from this encounter Findings - [M47.896 - Other spondylosis, lumbar region] Lumbar spondylosis - Last Documented On 05/23/2022 11:38AM ; [facility] - [M54.50 - Low back pain, unspecified] Low back pain - Last Documented On 05/23/2022 11:38AM ; [facility] - [M54.16 - Radiculopathy, lumbar region] Lumbar radiculopathy - Last Documented On 05/23/2022 11:38AM ; [facility] - [M79.10 - Myalgia, unspecified site] Myalgia and myositis - Last Documented On 05/23/2022 11:38AM ; [facility] - [G89.4 - Chronic pain syndrome] Chronic pain syndrome - Last Documented On 05/23/2022 11:38AM ; [facility] Instructions Includes: Instructions from this encounter Instructions to patient Intervention and counseling on cessation of tobacco use : Patient recieved smoking cessation handout Last Documented On 3 11:13AM ; [facility] Education and Decision Aids were provided during visit for: Lifestyle education Last Documented On 3 11:12AM ; [facility] Medical Equipment - Implanted Devices Includes: Current Devices No Medical Equipment Recorded Medications Includes: Medications discussed during this encounter and other current Medications New / Renewed during this visit LILIAN QUISPE on 05/23/2022 Gabapentin 600 MG Oral Tablet Provider: LILIAN JOSEPH 30 day supply: 90 tablet, 1 refills Diagnosis: Other spondylosis, lumbar region One tablet three times a day Pharmacy: [facility] - [address] [place] [address], [id number] - Last Documented On 3 2:09PM By JAMES QUINTANA ; [facility] DULoxetine HCl 30 MG Oral Capsule Delayed Release Particles Provider: LILIAN JOSEPH 30 day supply: 30 capsule, 1 refills Diagnosis: Chronic pain syndrome take one capsule po qhs for pain. Pharmacy: [facility] - [address] [place] [address], [id number] - Last Documented On 3 2:09PM By JAMES QUINTANA ; [facility] Cyclobenzaprine HCl 5 MG Oral Tablet Provider: LILIAN QUISPE 30 day supply: 90 tablet, 1 refills Diagnosis: Myalgia, unspecified site One tablet three times a day as needed for muscle spasm or stiffness Pharmacy: [facility] - [address] [place] [address], [address] - Last Documented On 3 2:09PM By JAMES QUINTANA ; [facility] Meloxicam 15 MG Oral Tablet Provider: LILIAN JOSEPH 30 day supply: 30 tablet, 1 refills Diagnosis: Other spondylosis, lumbar region One tablet daily with a meal Pharmacy: [facility] - [address] [place] [address], [address] - Last Documented On 3 2:09PM By JAMES QUINTANA ; [facility] Current Medications (continue as prescribed) Cyclobenzaprine HCl 5 MG Oral Tablet 07/05/2022 Provider: LILIAN QUISPE Diagnosis: Myalgia, unspeci fied site One tablet three times a day as needed for muscle spasm or stiffness Last Documented On 3 2:09PM By JAMES QUINTANA ; [facility] DULoxetine HCl 30 MG Oral Capsule Delayed Release Particles 07/05/2022 Provider: LILIAN JOSEPH Diagnosis: Chronic pain syn drome One capsule at bed time Last Documented On 3 2:09PM By JAMES QUINTANA ; [facility] Meloxicam 15 MG Oral Tablet 07/05/2022 Provider: LILIAN JOSEPH Diagnosis: Other spondylosi s, lumbar region One tablet daily with a meal Last Documented On 3 2:09PM By JAMES QUINTANA ; [facility] Suboxone 8-2 MG Sublingual Film 07/05/2022 Provider: Diagnosis: Twice a day. Last Documented On 3 1:37PM By JAMES QUINTANA ; [facility] Gabapentin 600 MG Oral Tablet 07/05/2022 Provider: LILIAN JOSEPH Diagnosis: Other spondylosi s, lumbar region One tablet three times a day Last Documented On 3 2:09PM By JAMES QUINTANA ; [facility] levETIRAcetam 750 MG Oral Tablet 06/16/2022 Provider : JERRELL CLANCY RN Diagnosis: Last Documented On 3 2:09PM By JAMES QUINTANA ; [facility] OLANZapine 10 MG Oral Tablet 06/15/2022 Provider: TITO CHANEY DNP ,PMHNP-BC Diagnosis: Last Documented On 3 2:10PM By JAMES HERRERA [facility] ; [facility] ALPRAZolam 2 MG Oral Tablet 12/30/2021 Provider: Diagnosis: As needed up to 4 tablets a day. Last Documented On 2 12:12PM [facility] Famotidine 20 MG Oral Tablet 11/22/2021 Provider: Diagnosis: Last Documented On 2 10:53AM By JAMES HERRERA [facility] ; [facility] Zofran 8 MG Oral Tablet 11/22/2021 Provider: Diagnosis: As needed. Last Documented On 2 10:53AM By JAMES HERRERA [facility] ; [facility] Medications Administered Includes: Administered Medications from this encounter No Administered Medications Recorded Vital Signs Includes: Vital Signs from this encounter Vital Name 05/23/2022 11:16A BP Cuff Size Regular Temp-Temporal 98.1 Height (in) 64 Weight (lb) 190 Body Mass Index 32.6 Body Surface Area (m2) 1.9 Pain Level 8 Last Documented: On 05/23/2022 11:38A M ; [facility] Results Includes: Results discussed during this encounter No Results Recorded For Specified Dates History of Present Illness Includes: History of Present Illness from this encounter HPI PHQ-9 Score: 26 Date:03/31/2022 BPI Score: Date: MiDAS Score: Date: SOAPP-R Score: 29 HIGH Date:03/31/2022 Pain Location: Lumbar Quality: Shooting, shock, stabbing, numbing. Radiation: Right leg. Severity: Timing: constant for the last 4 weeks. Associated Sx: Weakness. Aggravating Factors Movement. Alleviating Factors:stretches. Past Tx: SI Bursa Injection 11/18/21 , L5-S1 TFESI 12/10/21, Thermal RFA L3, L4, L5 Left 02/18/22 and Right 03/11/22 JERRELL WOMACK is a 36 year old [...] No vertigo - Last drug screen appropriate 11/22/2021 Discussion: Patient following up for bilateral L1, L2, L3 MBB. She reports 80% relief of pain for about 4 hours. She was able to do an entire set of nails with little pain which she could not do before. She was happy with her results and ready to proceed with confirmatory blocks. PRIOR VISIT: Patient needed a telehealth visit today due to her work schedule. and her hour drive to the office. She continues to have pain to the upper lumbar spine despite work modifications, rest, ice, NSAIDs, and muscle relaxers. After about 6 hours of work she is in severe pain. She states she has difficulty bending and lifting at work and her coworkers have noticed and try to help her as much as they can. Her MRI shows facet arthropathy at the upper lumbar levels where she is experiencing pain. We discussed MBB with progression to RFA if appropriate response She would like to proceed. PRIOR VISIT: Patient here today for follow-up after undergoing [...] use we will avoid narcotics. FIRST VISIT 11/22/21: Patient presents with an acute onset of [...] Current smoker 11/22/2021 Last Documented On 3 11:12AM ; [facility] Difficulty walking 11/22/2021 Last Documented On 3 11:12AM ; [facility] No consumption of alcohol 11/22/2021 Last Documented On 3 11:12AM ; [facility] Not using drugs 11/22/2021 Last Documented On 3 11:12AM ; [facility] Smoking packs of cigarettes per day 1 Last Documented On 3 11:12AM ; [facility] Smoking Status Unknown Procedures and Surgical History Includes: Procedures from this encounter Procedures Code Diagnosis Performing Provider Service L ocation Service Date plan of care reviewed and agreed to Last Documented On 3 11:12AM ; [facility] plan of care reviewed and agreed to by t estelle patient Last Documented On 3 11:12AM ; [facility] intervention and counseling on cessation of tobacco use : Patient recieved smoking cessation handout 4000F Last Documented On 3 11:13AM ; [facility] use of tobacco assessment performed 1000F Last Documented On 3 11:12AM ; [facility] patient screened for future fall risk: documentation of any fall with injury in past year 1100F Last Documented On 3 11:12AM ; [facility] review of medications documented 1160F Last Documented On 3 11:12AM ; [facility] screening for adult depression: impressi on and score 26 Last Documented On 3 11:12AM ; [facility] standardized depression screening: posit melo for symptoms Last Documented On 3 11:12AM ; [facility] encouragement to exercise Last Documented On 3 11:12AM ; [facility] Reviewed & agreed to staff entries. Last Documented On 3 11:12AM ; [facility] Clinical summary provided to patient Last Documented On 3 11:12AM ; [facility] SOAPP-R: total score 29 Last Documented On 3 11:12AM ; [facility] Surgical History Last Updated No Pacemaker 11/22/2021 Last Documented On 3 11:12AM ; [facility] Medical History Includes: Medical History addressed during this encounter Description Last Updated Has had no fall in the last 12 months. 0 03/31/2022 Last Documented On 3 11:12AM ; [facility] Denies a fear of falling. 11/22/2021 Last Documented On 3 11:12AM ; [facility] No Pain Pump 11/22/2021 Last Documented On 3 11:12AM ; [facility] No Spinal cord stimulator 11/22/2021 Last Documented On 3 11:12AM ; [facility] Please list all surgeries: Lypoma remove d from left side of my neck 11/22/2021 Last Documented On 3 11:12AM ; [facility] Family History Includes: Family History addressed during this encounter Description Last Updated Family history of Arthritis 11/22/2021 Last Documented On 3 11:12AM ; [facility] Family history of ischemic heart disease 11/22/2021 Last Documented On 3 11:12AM ; [facility] Maternal history of Arthritis 11/22/2021 Last Documented On 3 11:12AM ; [facility] Maternal history of family history of ki dney disease 11/22/2021 Last Documented On 3 11:12AM ; [facility] Review of Systems Includes: Review of Systems from this encounter Systemic: No systemic symptoms other then noted. In poor overall health, fatigue, and recent weight change. No recent weight loss. Head: No head symptoms other then noted. Headache. Neck: No neck pain. Eyes: Diplopia and blurred vision. Otolaryngeal: No otolaryngeal symptoms other than noted. Earache and tinnitus. Cardiovascular: No cardiovascular symptoms other than noted. Pulmonary: No pulmonary symptoms other than noted. Gastrointestinal: Appetite. No difficulty chewing and no dysphagia. Heartburn, nausea, vomiting, bowel movement frequency has recently changed, obstipation which is painful, bowel/bladder changes, and constipation. Genitourinary: No genitourinary symptoms other than noted. Endocrine: No endocrine symptoms other than noted. Temperature intolerance, muscle weakness, and Weakness. Hematologic: No easy bleeding and no tendency for easy bruising. Musculoskeletal: No musculoskeletal symptoms other than noted. Back pain, muscle aches, soft tissue swelling of a hand, of the foot, muscle cramps, pain localized to one or more joints, and joint stiffness localized to one or more joints. Neurological: No neurological symptoms other than noted. Dizziness. No fainting passing out with needles or medical procedures and no ataxia. Numbness. Psychological: Feeling nervous. No fear of falling. Depression and insomnia. No sleep apnea. Skin: No skin symptoms other than noted. Past Medical: A fall in the past 6 months. A fall was one times in the past six (6) months. Mental Status Includes: Mental Status from this encounter No Mental Status Recorded Functional Status Includes: Functional Status from this encounter No Functional Status Recorded Physical Exam Includes: Physical Exam from this encounter Allergies Includes: Active Allergies Substance Type Reaction Onset Date Resolved Date Statu s Steroid Intolerance 12/30/2021 Active Last Documented On 07/05/2022 1:18PM ; [facility] Note: causes Caroline Encounters Encounter Provider Location Date Check-In Time Check- Out Time Diagnosis TELEHEALTH JAMES HERRERA APRN-CHATO, LILIAN [facility] 3 11:00AM 11:32AM Lumbar Spondylosis,C hronic Pain Syndrome,Myal paresh and Myositis,Lumb ar Radiculopathy ,Dorsopathy Low Back Pain Insurance Includes: Active Insurance Policies Plan Name Member ID Group # Subscriber Relationship Effect melo Dates 1 - [facility] [id number] JERRELL WOMACK Self Clinical Notes Includes: Clinical Notes from this encounter * Progress note Date Encounter Last Documented by 05/23/2022 TELEHEALTH Last documented on 05/23/2022; 11:38 AM, JAMES HERRERA APRN-CHATO, ALARM SERVICE TECHNICIAN-WHITLEY; [facility] Active Problems & Conditions - Anxiety Disorder Nos - Thomas's Esophagus - Bipolar II Disorder - Convulsive Disorder - Depression - Nicotine Dependence - Post-traumatic Stress Disorder - Primary Hypothyroidism 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 History of Present Illness PHQ-9 Score: 26 Date:03/31/2022 BPI Score: Date: MiDAS Score: Date: SOAPP-R Score: 29 HIGH Date:03/31/2022 Pain Location: Lumbar Quality: Shooting, shock, stabbing, numbing. Radiation: Right leg. Severity: Timing: constant for the last 4 weeks. Associated Sx: Weakness. Aggravating Factors Movement. Alleviating Factors:stretches. Past Tx: SI Bursa Injection 11/18/21 , L5-S1 TFESI 12/10/21, Thermal RFA L3, L4, L5 Left 02/18/22 and Right 03/11/22 JERRELL WOMACK is a 36 year old [...] No vertigo - Last drug screen appropriate 11/22/2021 Discussion: Patient following up for bilateral L1, L2, L3 MBB. She reports 80% relief of pain for about 4 hours. She was able to do an entire set of nails with little pain which she could not do before. She was happy with her results and ready to proceed with confirmatory blocks. PRIOR VISIT: Patient needed a telehealth visit today due to her work schedule. and her hour drive to the office. She continues to have pain to the upper lumbar spine despite work modifications, rest, ice, NSAIDs, and muscle relaxers. After about 6 hours of work she is in severe pain. She states she has difficulty bending and lifting at work and her coworkers have noticed and try to help her as much as they can. Her MRI shows facet arthropathy at the upper lumbar levels where she is experiencing pain. We discussed MBB with progression to RFA if appropriate response She would like to proceed. PRIOR VISIT: Patient here today for follow-up after undergoing [...] use we will avoid narcotics. FIRST VISIT 11/22/21: Patient presents with an acute onset of [...] a day, 30 days, 1 refills - Keppra 500 MG Oral Tablet One tablet twice a day 0 days, 0 refills - Meloxicam 15 MG Oral Tablet One tablet daily with a meal, 30 days, 1 refills - OLANZapine 5 MG Oral Tablet 30 days, 0 refills - Zofran 8 MG [...] symptoms other then noted. In poor overall health, fatigue, and recent weight change. No recent weight loss. Head: No head symptoms other then noted. Headache. Neck: No neck pain. Eyes: Diplopia and blurred vision. Otolaryngeal: No otolaryngeal symptoms other than noted. Earache and tinnitus. Cardiovascular: No cardiovascular symptoms other than noted. Pulmonary: No pulmonary symptoms other than noted. Gastrointestinal: Appetite. No difficulty chewing and no dysphagia. Heartburn, nausea, vomiting, bowel movement frequency has recently changed, obstipation which is painful, bowel/bladder changes, and constipation. Genitourinary: No genitourinary symptoms other than noted. Endocrine: No endocrine symptoms other than noted. Temperature intolerance, muscle weakness, and Weakness. Hematologic: No easy bleeding and no tendency for easy bruising. Musculoskeletal: No musculoskeletal symptoms other than noted. Back pain, muscle aches, soft tissue swelling of a hand, of the foot, muscle cramps, pain localized to one or more joints, and joint stiffness localized to one or more joints. Neurological: No neurological symptoms other than noted. Dizziness. No fainting passing out with needles or medical procedures and no ataxia. Numbness. Psychological: Feeling nervous. No fear of falling. Depression and insomnia. No sleep apnea. Skin: No skin symptoms other than noted. Past Medical: A fall in the past 6 months. A fall was one times in the past six (6) months. Physical Findings - Vitals taken 05/23/2022 11:16 am BP Cuff Size Regular Temp-Temporal 98.1 F Height 64 in Weight 190 lbs Body Mass Index 32.6 kg/m2 Pain Level 8 Pain Level Note low back Vital Signs: - Pain level by numeric rating scale 8. Psychiatric: Psychiatric: Value PHQ9 score: 26 PRIOR EXAM 03/31/22 Constitutional: Well developed. Well nourished. No acute [...] Affect normal. No pain behaviors. Skin: Normal. [place], warm, dry. Tests Educational Testing: Questionnaires PHQ-9: Value SOAPP-R: total score 29 Assessment - [M47.896 - Other spondylosis, lumbar region] Lumbar spondylosis - [M54.50 - Low back pain, unspecified] Low back pain - [M54.16 - Radiculopathy, lumbar region] Lumbar radiculopathy - [M79.10 - Myalgia, unspecified site] Myalgia and myositis - [G89.4 - Chronic pain syndrome] Chronic pain syndrome Therapy - Reviewed & agreed to staff entries. - Encouragement to exercise. - Intervention and counseling on cessation of tobacco use: Patient recieved smoking cessation handout. - Clinical summary provided to patient. - Plan of care reviewed and agreed to by the patient. Counseling/Education - Lifestyle education Discussed Continue current medications. I do not recommend physical therapy at this time patient can not tolerate it. She will be scheduled for PT when we get pain better contolled. Schedule for confirmatory bilateral L1, L2, L3 medial branch blocks with progression to thermal radiofrequency ablation under fluoroscopy. FU after procedure. Plan StartCited - Chronic pain syndrome DULoxetine HCl 30 MG capsule take one capsule po qhs for pain., 30 days, 1 refills EndCited StartCited - Myalgia, unspecified site Cyclobenzaprine HCl 5 MG tablet One tablet three times a day as needed for muscle spasm or stiffness, 30 days, 1 refills EndCited StartCited - Other spondylosis, lumbar region Referral: Pain Management Instructions: consent for bilateral L1, L2, L3 medial branch blocks under fluoroscopy Gabapentin 600 MG tablet One tablet three [...] notes, laboratory data, patient self-report questionnaires, and [place] prescription monitoring database entries. Significant social barriers exist to compliance resulting in limited prognosis. Decision to proceed with interventional therapies was made at the time of today's visit. Practice Management Use of tobacco assessment performed and patient screened for future fall risk documentation of any fall with injury in past year Review of medications documented; Standardized depression screening: positive for symptoms and for adult impression and score 26; [74119] Established outpatient, medically appropriate H&P, moderate level decision making, 30-39 minutes. A total of 13 minutes were spent on this patient's evaluation, as above, with greater than 50% of this time spent in direct [id number] counseling and coordination of care. Results of this interaction were communicated directly [...] but may be subject to typographical or parks recreation coordinator errors. Verify all diagnoses, medications, dosages, and patient instructions with patient and/or the originator of this document. Telehealth Visit: Audio and video. Patient called from their home. Provider located at the [facility] office. Patient consents to bill insurance for this visit. No exam completed. If at anytime it was felt patient need to be evaluated arrangements would be made. Health Reminders - Assess BMI satisfied 05/23/2022. - Assess Tobacco Use satisfied 05/23/2022. - Depression Screening satisfied 05/23/2022. - Follow Up Plan BMI Management satisfied 05/23/2022. - Follow up plan for Depression Screening satisfied 05/23/2022. - Medication Management satisfied 05/23/2022. - Smoking & Tobacco Cessation Intervention and Counseling satisfied 05/23/2022.
--- OUTSIDE RECORDS SUMMARY | 2025-01-06 09:37 | XMS_ITS | Clinical Summary ---
Author Organization [facility] Address [address] [place] [address] Care Team Providers Care Dairy Specialist Name Role Phone Peyman Wright MD Unavailable [phone] Arvin So NP Primary Care Provider [phone] Allergies Active Allergy Reactions Criticality Noted Date Comments Corticosteroids (Glucocorticoids) Other (See comments) Medium 12/30/2021 Causes her bipolar swings more extreme Pt states not allergic just speeds her up Medications ALPRAZolam (XANAX) 2 mg tablet Take 1 tablet (2 mg total) by mouth 4 (four) times a day as needed for anxiety Active gabapentin (NEURONTIN) 300 mg capsule Take 300 mg by mouth 3 (three) times a day as needed Active ergocalciferol (VITAMIN D) 50,000 unit capsule Take 1 capsule (50,000 Units total) by mouth daily 6 Active albuterol HFA (PROVENTIL HFA,VENTOLIN HFA,PROAIR HFA) 90 mcg/actuation inhaler Inhale 200 puffs as needed 2 Active etonogestreL (Nexplanon) 68 mg implant Nexplanon 68 mg subdermal implant Inject 1 implant by subcutaneous route. Active famotidine (PEPCID) 20 mg tablet daily 2 Active meloxicam (MOBIC) 15 mg tablet Take 1 tablet (15 mg total) by mouth as needed 2 Active ondansetron (ZOFRAN) 8 mg tablet Take 1 tablet (8 mg total) by mouth 2 Active polyethylene glycol (MIRALAX) 17 gram/dose powder 17 g daily Active levETIRAcetam (KEPPRA) 500 mg tablet Take 500 mg by mouth 2 (two) times a day Active buprenorphine-n aloxone (SUBOXONE) 8-2 mg per film 1 film under the tongue and allow to dissolve Sublingual three times daily 4 Active doxepin (SINEquan) 10 mg capsule daily 5 Active FLUoxetine (PROzac) 40 mg capsule 3 Active venlafaxine XR (EFFEXOR-XR) 150 mg 24 hr capsule 5 Active OLANZapine (ZyPREXA) 15 mg tablet daily 4 Active OLANZapine (ZyPREXA) 5 mg tablet every 12 hours 3 Active naloxone (NARCAN) 4 mg/actuation spray,non-aeros ol as directed Nasally Active lamoTRIgine (LaMICtal) 25 mg tabletIndicatio ns:Seizure disorder, complex partial (HCC) Take 1 tablet (25 mg total) by mouth 2 (two) times a day Take one tablet po twice a day for two weeks, then 2 tablets po twice a day 120 tablet 3 5 Active Active Problems Problem Noted Date Diagnosed Date Seizure disorder 02/09/2022 Benzodiazepine dependence, continuous 02/09/2022 Bipolar II disorder 02/08/2022 Anxiety 02/08/2022 Post traumatic stress disorder (PTSD) 02/08/2022 Joint pain 09/16/2015 Elevated antinuclear antibody (LORELEI) level 2015 Encounters Date Type Department Care Team Description 10/09/2024 Telephone [facility] [address] [place] [address] [address], [place] [address] Bert Price MD from Last 3 Months Immunizations Immunization Administration Dates Next Due Influenza, Quadrivalent, Spl it, Preservative Free, Intramuscular 01/05/2015 Surgical History Surgery Date Site/Laterality Comments SECTION 2010 section Medical History Medical History Date Comments Depression Depression Anxiety disorder Anxiety Family History Medical History Relation Name Comments Arthritis Father Family history of arthritis - (Added by TW Conv) Diabetes Father Diabetes mellit us; Fibromyalgia Father Family history of fibromyalgia - (Added by TW Conv) Arthritis Mother Family history of arthritis - (Added by TW Conv) Fibromyalgia Mother Family history of fibromyalgia - (Added by TW Conv) Gout Mother Family history of gout - (Added by TW Conv) Hypertension Mother Hypertension; Lupus Mother Family history of systemic lupus erythematosus - (Added by TW Conv) Osteoarthritis Mother Family histor y of osteoarthritis - (Added by TW Conv) Rheum arthritis Mother Family histo ry of rheumatoid arthritis - (Added by TW Conv) Thyroid disease Mother thyroid diso rder; Relation Name Status Comments Father Mother Social History Tobacco Use Types Packs/Day Years Used Date Smoking Tobacco: Heavy Smoker Smokeless Tobacco: Never Tobacco Cessation:Ready to Q uit: No; Counseling Given: Yes Alcohol Use Standard Drinks/Week Comments No 0 (1 standard drink = 0.6 oz pur e alcohol) PHQ-2 Answer Date Recorded PHQ-2 Total Score (If total score is 3 or more points, staff should administer the PHQ-9) 0 02/09/2022 Personal Safety Answer Date Recorded Have you ever been in or are you currently in a harmful physical or emotional relationship or is someone making you feel afraid or unsafe? 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 Gender Identity Not on file Sexual Orientation Not on file Last Filed Vital Signs Vital Sign Reading Time Taken Comments Blood Pressure 118/90 07/09/2024 10:17 AM CDT Pulse 121 07/09/2024 10:17 AM CDT Temperature 36.9 C (98.4 F) 06/19/2023 6:20 AM CDT Respiratory Rate 19 06/19/2023 6:20 AM CDT Oxygen Saturation 94% 07/09/2024 10: 17 AM CDT Inhaled Oxygen Concentration - - Weight 103.7 kg (228 lb 9.6 oz) 025 10:17 AM CDT Height 160 cm (5' 2.99) 07/09/2024 10: 17 AM CDT Body Mass Index 40.5 07/09/2024 10:17 AM CDT Plan of Treatment Health Maintenance Due Date Last Done Comments Breast Cancer Screening-Mammogram 1983 Cervical Cancer Screening 1983 DTaP/Tdap/Td Vaccine (1 - Tdap) 12/26/1994 Varicella Vaccines (1 of 2 - 13+ 2-dose series) 1996 Regular Well Visit/Exam 18-64 12/26/2001 Pneumococcal vaccine <65 (1 of 2 - PCV) 12/26/2002 HPV Vaccines (1 - 3-dose SCDM series) 12/26/2010 Depression Screening 02/09/2023 02/09/2022 Influenza Vaccine (#1) 2024 01/05/2015 Hepatitis B Screening Completed 09/16/2015 Hepatitis C Screening Completed 09/16/2015 Procedures Procedure Name Priority Date/Time Associated Diagnosis Comments SERUM HEPATITIS C AB Routine 09/16/2015 9:40 AM CDT from Last 3 Months or Most Recently Relevant to Health Maintenance Results * Serum Hepatitis C ab (09/16/2015 9:40 AM CDT) HCV ab Negative NEG CDR HISTOR ICAL RESULTS Serum 09/16/2015 9:40 AM CDT Narrative CDR HISTORICAL RESULTS - 09/17/2015 6:15 AM CDT Interpretive Data Positive results should be confirmed by a molecular method. If positive, a second separately collected sample should be submitted for Hepatitis C Virus (HCV) RNA Detection and Quantitation by Real-Time Reverse Medical Surgery Nurse-PCR (RT-PCR). Current interpretive data was last revised on 2015. 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 LAB BLOOD ORDERABLES Final Result CDR HISTORICAL RESULTS from Last 3 Months or Most Recently Relevant to Health Maintenance Insurance [facility] Member Subscriber Plan / Payer (Ef fective 2019-Present) Name:Carlene Parikh Relation to Subscriber:Self Name:Carlene Parikh Payer ID:[id number] (NAIC) Type:MEDICAID RISK OTHER Address: [place] [id number] [facility] Care Teams Dairy Specialist Relationship Specialty Start Date End Date Arvin So NP [address] [facility] [place] [address] PCP - General Pain Management 03/28/24 Peyman Wright MD 09/18/20
[2025-01-06 09:48] VITALS: BP 141/95; PULSE 71; RESP 20; O2SAT 100
[2025-01-06 10:38] LABS: BEDSIDEPREGUCG Negative (Negative)
[2025-01-06 10:39] VITALS: BP 127/79; PULSE 69
[2025-01-06 10:40] VITALS: BP 141/101; PULSE 75
[2025-01-06 10:41] VITALS: BP 149/107; PULSE 85
[2025-01-06 10:57] LABS: Add Urine Microscopic? YES; Appearance Urine Cloudy (Clear); Glucose Urine UA Negative (Negative); Leukocyte Esterase Ur Negative LEU/UL (Negative); Need Manual Microscopic Reviewed; Nitrate Urine Negative (Negative); Specific Grav Ur 1.039 (1.001-1.035)
[2025-01-06 11:04] LABS: Hematocrit 43.2 % (37.0-47.0); Hemoglobin 14.1 g/dL (12.0-15.0); Immature Granulocyte Percent A 0.6 % (0-0.5); Lymphocytes Absolute Auto 2.51 K/mm3 (0.9-3.2); Mean Corpuscular HGB Conc 32.6 g/dl (32-36); Mean Corpuscular Hemoglobin 27.6 pg (26-34); Mean Corpuscular Volume 84.5 fl (80-100); Nucleated Red Blood Cells Absolute Auto 0.000 K/mm3 (0.0-0.012); Nucleated Red Blood Cells Perc 0.0 % (0.0-0.2); Platelet Count Result 309 k/mm3 (150-375); Red Blood Count 5.11 M/mm3 (4.2-5.4); White Blood Count 15.3 K/mm3 (4.5-10.0)
[2025-01-06 11:29] LABS: Alanine Aminotransferase 16 U/L (6-35); Albumin Level 3.9 g/dL (3.5-5.1); Alkaline Phosphatase 72 U/L (38-126); Anion Gap 3 mmol/L (4-12); Aspartate Amino Transferase 27 U/L (14-36); Bilirubin,Total 0.3 mg/dL (0.2-1.3); Blood Urea Nitrogen 6 mg/dL (7-17); Calcium 8.8 mg/dL (8.4-10.2); Carbon Dioxide 27 mmol/L (22-30); Chloride 108 mmol/L (98-107); Estimated CRCL calculation 110 ml/min; Estimated Glomerular Filt Rate > 60; Glucose 99 mg/dL (65-110); Lipase 76 U/L (23-300); Potassium 3.3 mmol/L (3.4-5.0); Sodium 138 mmol/L (137-145); Total Protein 6.7 g/dL (6.3-8.2)
--- NOTE | 2025-01-06 12:15 | PC.NURSE ---
this RN was next door when pt was getting verbally aggressive with EDP. pt was frustrated that she hasn't gotten any treatment only her blood drawn. EDP was trying to examine pt but pt wouldn't let EDP continue. EDP asked pt multiple times if she would like to be seen and evaluated and pt denied. pt was frustrated that she took an ambulance here and wasn't seen quick enough, EDP educated pt that we see emergencies first. pt frustrated and wants to leave. pt will be escorted out by security. pt ripped her IV out and threw it across the room. catheter was removed intact.
--- NOTE | 2025-01-06 12:20 | ED_ITS ---
HPI - General Adult General Chief complaint: Nausea/Vomiting/Diarrhea Stated complaint: n/v, fevers, seizures 10 days Time Seen by Provider: 01/06/25 11:46 History of Present Illness HPI narrative: 39-year-old female presents emergency department for evaluation for nausea vomiting diarrhea and chills. At time of initial evaluation patient began swearing and complaining that she had not been seen earlier. While I attempted to convey that I was there to care for her presently and that the emergency department had been very busy the patient continued to swear at me and patient stated she preferred to leave. Multiple times I did offer to take care of the patient and did not encourage her to leave. Patient was verbally assaulting staff. And patient was able to ambulate out of the emergency department when no distress. Related Data Home Medications ?Medication ?Instructions ?Recorded ?Confirmed ?Last Taken ?Type alprazolam 2 mg tablet (Xanax) 2 mg PO QID PRN Anxiety 01/21/19 01/21/19 01/21/19 History gabapentin 300 mg tablet 300 mg PO DAILY 01/03/20 Un known History Allergies Allergy/AdvReac Type Severity Reaction Status Date / Time No Known Allergies Allergy Verified 01/03/20 18:03 REPLACED BY [facility] Past Medical History Medical History (Updated 01/06/25 @ 12:20 by Dagoberto Dhillon MD) Tobacco dependence Anxiety Kidney stones Surgical History Surgical History History of renal stent H/O lithotripsy Social History Social History Smoking packs per day: 2 Smoking cigarettes per day: 40.0 Years smoked: 10 Smoking pack-years: 20.00 Tobacco type: cigarettes Second hand tobacco smoke exposure: No Alcohol intake: never Substance use: never Living arrangements: with family Gender identity (if verbalized by the patient): Female Spiritual care concerns: No Agree to blood products: Yes Course Vital Signs Vital signs: Vital Signs Temperature 97.6 F 01/06/25 09:11 Pulse Rate 83 01/06/25 09:11 Respiratory Rate 18 01/06/25 09:11 Blood Pressure 151/113 H 01/06/25 09:11 Pulse Oximetry 98 01/06/25 09:11 Oxygen Delivery Room Air 01/06/25 09:11 Temperature 97.6 F 01/06/25 09:11 Pulse Rate 85 01/06/25 10:41 Respiratory Rate 20 01/06/25 09:48 Blood Pressure 149/107 H 01/06/25 10:41 Pulse Oximetry 100 01/06/25 09:48 Oxygen Delivery Room Air 01/06/25 09:11 Medical Decision Making MDM Narrative Medical decision making narrative: Patient is afebrile with his have a leukocytosis of 15.3. Hemoglobin of 14.1. Patient has potassium of 3.3. Blood in her urine with no underlying evidence of infection. At time of initial evaluation patient was resting comfortably but became verbally abusive to staff. Patient eloped from the emergency department Vital Signs Vital Signs: Vital Signs Temperature 97.6 F 01/06/25 09:11 Pulse Rate 83 01/06/25 09:11 Respiratory Rate 18 01/06/25 09:11 Blood Pressure 151/113 H 01/06/25 09:11 Pulse Oximetry 98 01/06/25 09:11 Oxygen Delivery Room Air 01/06/25 09:11 Temperature 97.6 F 01/06/25 09:11 Pulse Rate 85 01/06/25 10:41 Respiratory Rate 20 01/06/25 09:48 Blood Pressure 149/107 H 01/06/25 10:41 Pulse Oximetry 100 01/06/25 09:48 Oxygen Delivery Room Air 01/06/25 09:11 Lab Data 01/06/25 10:55 01/06/25 10:55 Labs: Lab Results 01/06/25 01/06/25 Range/Units 10:36 10:55 WBC 15.3 H (4.5-10.0) K/mm3 RBC 5.11 (4.2-5.4) M/mm3 Hgb 14.1 (12.0-15.0) g/dL Hct 43.2 (37.0-47.0) % MCV 84.5 (80-100) fl MCH 27.6 (26-34) pg MCHC 32.6 (32-36) g/dl RDW 13.6 (11.5-14.5) % Plt Count 309 (150-375) k/mm3 MPV 10.7 H (7.4-10.4) fl Immature Gran % (Auto) 0.6 H (0-0.5) % Neut % (Auto) 76.8 H (45.5-73.1) % Lymph % (Auto) 16.5 L (18.3-44.2) % [place] % (Auto) 4.9 (2.6-8.5) % Eos % (Auto) 0.9 (0-4.4) % Baso % (Auto) 0.3 (0.2-1.2) % Lymph # (Auto) 2.51 (0.9-3.2) K/mm3 [place] # (Auto) 0.7 H (0.1-0.6) K/mm3 Eos # (Auto) 0.1 (0-0.3) K/mm3 Baso # (Auto) 0.1 (0.0-0.1) K/mm3 Abs Immat Gran (auto) 0.09 H (0.00-0.031) K/mm3 Absolute Neuts (auto) 11.7 H (1.3-6.7) K/mm3 Absolute Nucleated RBC 0.000 (0.0-0.012) K/mm3 Nucleated RBC % 0.0 (0.0-0.2) % Sodium 138 (137-145) mmol/L Potassium 3.3 L (3.4-5.0) mmol/L Chloride 108 H (98-107) mmol/L Carbon Dioxide 27 (22-30) mmol/L Anion Gap 3 L (4-12) mmol/L BUN 6 L (7-17) mg/dL Creatinine 0.73 (0.7-1.0) mg/dL Estim Creat Clear Calc 110 ml/min Estimated GFR > 60 (59 - ) Glucose 99 (65-110) mg/dL Calcium 8.8 (8.4-10.2) mg/dL Total Bilirubin 0.3 (0.2-1.3) mg/dL AST 27 (14-36) U/L ALT 16 (6-35) U/L Alkaline Phosphatase 72 (38-126) U/L Total Protein 6.7 (6.3-8.2) g/dL Albumin 3.9 (3.5-5.1) g/dL Lipase 76 (23-300) U/L Urine Color Yellow (Yellow) Urine Appearance Cloudy H (Clear) Urine pH 5.5 (5.0-9.0) Ur Specific [place] 1.039 H (1.001-1.035) Urine Protein 1+ H (Negative) mg/dL Urine Glucose (UA) Negative (Negative) mg/dL Urine Ketones Trace H (Negative) mg/dL Ur Blood (Man) 2+ H (Negative) Urine Nitrate Negative (Negative) Urine Bilirubin Negative (Negative) Urine Urobilinogen 1.0 (<2.0) mg/dL Add Ur Microanalysis Reviewed Leukocyte Esterase Rfl Negative (Negative) MATTEO/UL Urine RBC 21-50 H (0-2) /hpf Urine WBC 0-5 (0-3) /hpf Ur Squamous Epith Cells Moderate (Few) /hpf Urine Bacteria 4+ H /hpf Urine Casts 3-5 POC Urine HCG, Qual Negative (Negative) Discharge Plan Discharge Clinical Impression: Nausea & vomiting Patient Disposition: Elopement After Seen by Prov Patient Language: Uzbek Prescriptions: No Action gabapentin 300 mg Tablet 300 mg PO DAILY famotidine [Pepcid] 20 mg tablet 20 mg PO BID Qty: 14 0RF hyoscyamine sulfate [Levsin] 0.125 mg tablet 0.125 mg PO QID Qty: 14 0RF ondansetron 4 mg tablet,disintegrating 4 mg PO Q6H PRN (Reason: nausea and vomiting) Qty: 10 0RF albuterol sulfate 1.25 mg/3 mL solution for nebulization 1.25 mg inhalation Q4H Qty: 75 0RF prednisone 20 mg tablet 60 mg PO DAILY 5 Days Qty: 15 0RF azithromycin [Zithromax Z-Noel] 250 mg tablet See Rx Instructions PO .COMPLEX Qty: 6 0RF Rx Instructions: For 250 mg dose pack: take 500 mg today (day 1), then 250 mg for 4 days (days 2-5) amoxicillin-pot clavulanate 875-125 mg tablet 1 tablet PO Q12H 7 Days Qty: 14 0RF benzonatate 200 mg capsule 200 mg PO TID PRN (Reason: cough) Qty: 20 0RF alprazolam [Xanax] 2 mg Tablet 2 mg PO QID PRN (Reason: Anxiety) Follow-up/Referrals: PHYSICIAN NOT ON STAFF,NONSTAFF [Primary Care Provider]
--- OUTSIDE RECORDS SUMMARY | 2025-01-06 12:33 | XMS_ITS | Clinical Summary ---
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 Current interpretive data was last revised on 2015. [place] CAKE TESTER LAB BLOOD ORDERABLES Final Result CDR HISTORICAL RESULTS from Last 3 Months or Most Recently Relevant to Health Maintenance Insurance [facility] Member Subscriber Plan / Payer (Ef fective 2019-Present) Name:Carlene Parikh Relation to Subscriber:Self Name:Carlene Parikh Payer ID:[id number] (NAIC) Type:MEDICAID RISK OTHER Address: [place] [id number] [facility] Care Teams Chief Data Officer Relationship Specialty Start Date End Date Arvin So NP [address] [facility] [place] [address] PCP - General Pain Management 03/28/24 Peyman Wright MD 09/18/20
== END 2025-01-06 14:01 | disposition left against medical advice (07) ==
PROVIDERS: Emergency Provider Emergency Medicine
DX: R11.2 Nausea with vomiting, unspecified (principal); F41.9 Anxiety disorder, unspecified; F17.210 Nicotine dependence, cigarettes, uncomplicated; Z87.442 Personal history of urinary calculi
CPT/HCPCS: 36415; 80053; 81001; 81025; 83690; 85025; 99283